=== PATIENT | female | born 1970 | race Caucasian/White ===

== ENCOUNTER → 2016-11-02 | Outpatient (CLI) | payer OTHER ==
--- NOTE | 2016-11-02 21:34 | CONS ---
PRIMARY CARE PHYSICIAN: Dr. Savage. REFERRING PHYSICIAN: Dr. Major. REASON FOR CONSULTATION: Sleep apnea. A 46-year-old e-mailed coming in to be investigated for sleep apnea. She snores very loud and her sleep is fragmented and during the day she is quite somnolent and sleepy. She grinds her teeth in addition and she is complaining of excessive tiredness and sleepiness during the day. She goes to bed around 10:00 p.m., wakes up at 7:00 a.m. in the morning. Sometimes it takes her more than 30 minutes to fall asleep; however, during the night she wakes multiple occasions and then she has at times difficulty in going back to the sleep. For this reason she was referred for a sleep evaluation. PAST MEDICAL HISTORY: 1. Congenital heart disease with a previous cardiac surgery that was done back in 1998. 2. Hypertension. 3. Seizure disorder. 4. Hyperlipidemia. 5. Hypothyroidism. 6. Migraines. 7. Anxiety/depression. SURGICAL HISTORY: 1. Cardiac surgery/open heart surgery for congenital heart disease and repair of a hole inside the heart in 1998. 2. Tonsillectomy. 3. Foot surgery. 4. . Drug allergies are not known. Outpatient medication list includes: 1. Pravastatin 40 mg p.o. daily. 2. Lexapro 20 mg p.o. daily. 3. Propranolol 80 mg p.o. daily. 4. Triamterene/hydrochlorothiazide 37.5/25, 1 tablet a day. 5. Levothyroxine 50 mcg p.o. daily. 6. Xanax 0.5 on a p.r.n. basis. 7. [place] 7.5 p.r.n. and 8. Sumatriptan on a p.r.n. basis. SOCIAL HISTORY: The patient is a nonsmoker. No history alcoholism. No history of IV drugs. FAMILY HISTORY: Negative for any sleep breathing disorder. REVIEW OF SYSTEMS: Twelve-point review of systems was done and the positive findings were all mentioned above in the history of present illness. BP is 115/88, pulse 90, respirations 16, temperature 98.5. Saturation 98% on room air. Weight is 203. Height is 5 feet 6 inches. GENERAL APPEARANCE: Calm, comfortable. HEENT: Mallampati class IV. Significant crowding of posterior pharynx. There is no goiter or neck mass. LUNGS: Clear to auscultation. HEART: Sounds are regular rate and rhythm. Normal S1, S2. ABDOMEN: Soft, nontender, no organomegaly. EXTREMITIES: No edema. No cyanosis or clubbing. IMPRESSION: 1. Obstructive sleep apnea suspected, currently under investigation. The patient may have also a component of insomnia in addition. 2. Significant crowding of posterior pharynx with a Mallampati class IV. 3. Obesity with a body mass index of 32.7. 4. Congenital heart disease with previous cardiac surgery. 5. Hypertension. 6. Hyperlipidemia. 7. Hypothyroidism. 8. Migraine headache. 9. Generalized anxiety/depression. 10. History of seizure disorder. PLAN: Proceed with a screening polysomnogram and treat the patient accordingly. Will investigate for any significant sleep disturbance and treat accordingly.
== END | disposition home or self-care (01) ==
LOC: SLEEP 14:52
PROVIDERS: ATTEND Internal Medicine Critical Care Medicine
DX: G47.33 Obstructive sleep apnea (adult) (pediatric) (principal); E66.9 Obesity, unspecified; Z68.32 Body mass index [BMI] 32.0-32.9, adult; Q24.9 Congenital malformation of heart, unspecified; I10 Essential (primary) hypertension; E78.5 Hyperlipidemia, unspecified; E03.9 Hypothyroidism, unspecified; G43.909 Migraine, unspecified, not intractable, without status migrainosus; F41.1 Generalized anxiety disorder; F32.9 Major depressive disorder, single episode, unspecified; G40.909 Epilepsy, unspecified, not intractable, without status epilepticus; Z79.899 Other long term (current) drug therapy
CPT/HCPCS: 99203; 99211

== ENCOUNTER → 2016-11-12 | Outpatient (CLI) | payer OTHER ==
--- NOTE | 2016-11-12 14:14 | MM ---
Reason for exam: screening (asymptomatic). Last mammogram was performed 1 year ago. History: Patient is postmenopausal. Family history of premenopausal breast cancer in mother at age 40. Benign left mammotome panel of the left breast, March 04, 2008. Took hormonal contraceptives for 1 year beginning at age 10. Taking estrogen for 5 months beginning at age 45. Physical Findings: A clinical breast exam by your physician is recommended on an annual basis and results should be correlated with mammographic findings. MG Screening Mammo w CAD Bilateral CC and MLO view(s) were taken. Prior study comparison: October 30, 2015, bilateral MG screening mammo w CAD. October 04, 2014, bilateral MG screening mammo w CAD. The breast tissue is heterogeneously dense. This may lower the sensitivity of mammography. There is no discrete abnormality. No significant changes when compared with prior studies. ASSESSMENT: Negative, BI-RAD 1 RECOMMENDATION: Routine screening mammogram of both breasts in 1 year.
== END | disposition home or self-care (01) ==
LOC: RADMAMWWP 10:21
PROVIDERS: ATTEND Internal Medicine
DX: Z12.31 Encounter for screening mammogram for malignant neoplasm of breast (principal)

== ENCOUNTER → 2017-02-23 | Outpatient (CLI) | payer OTHER ==
--- NOTE | 2017-02-23 10:48 | MR ---
EXAMINATION TYPE: MR lumbar spine wo con DATE OF EXAM: 02/23/2017 COMPARISON: NONE HISTORY: Low back pain TECHNIQUE: T1 and T2 axial and sagittal images of the lumbar spine are submitted. FINDINGS: There is no abnormal signal seen within the visualized spinal cord or paraspinal soft tissu es. At L1-2 there is no disc herniation or canal stenosis. No degenerative disc disease. At L2-3 there is mild disc desiccation. Disc space maintained. Mild hypertrophic change of the facets . No disc herniation, canal stenosis, or foraminal encroachment. At L3-4 there is mild disc desiccation. No disc herniation or canal stenosis. Mild circumferential di sc bulging with very mild bilateral foraminal encroachment. At L4-5 there is broad-based central disc bulging with mild effacement of thecal sac but no canal mann nosis. Mild bilateral foraminal encroachment. Mild hypertrophy of the facets. At L5-S1 there is no foraminal encroachment or canal stenosis. No disc herniation. Incidental note ma de of Tarlov cyst S2 level. IMPRESSION: 1. Multilevel disc desiccation with no evidence of focal herniation. Mild disc bulging L3-L4 and L4- 5 with no canal stenosis.
== END | disposition home or self-care (01) ==
LOC: RADMRIMAIN 09:10
PROVIDERS: ATTEND Internal Medicine
DX: M51.26 Other intervertebral disc displacement, lumbar region (principal)
CPT/HCPCS: 72148

== ENCOUNTER → 2017-04-26 | Outpatient (CLI) | payer OTHER ==
--- NOTE | 2017-04-27 08:21 | PN ---
This is a 47-year-old female patient, diagnosed having severe obstructive sleep apnea with an AHI of 74.5. The patient's disease was worse in a supine body position. The patient was placed on the CPAP therapy at the pressure of 9 cm of water. The patient is coming in today for a compliancy check. Despite a successful titration, compliance data is suboptimal. The patient is not meeting the insurance guidelines to maintain her CPAP machine. I noted that the patient is compliant that she is using it every night; however, she is not achieving more than 4 hours. In fact, she achieved more than 4 hours only 2 out of the past 30 days. Average CPAP use around 2.4 hours with an AHI down to 14.6. No significant leaks around the mask. Upon further inquiry, the patient is using a Wren FX nasal pillow and sleeping in a sidewise body position has become uncomfortable knowing that the mask itself is irritating the side of the face and the cheek. This could be partly related affecting her overall compliance. For that reason, I educated the patient. I tried the different mask interfaces and I decided to proceed with an AirFit P10 nasal pillow rather than Wren FX. She has no other new complaints. She has comorbidity including coronary artery disease and previous cardiac surgery and hypertension, hyperlipidemia and hypothyroidism and it is crucial for her to continue with the CPAP treatment. She is gaining weight and she is up to 216 pounds. BP is 150/86, pulse rate is 63, respirations 14, [place] Score is 9, weight is 216, temperature is 97.2, saturation 97% on room air. GENERAL APPEARANCE: Calm, comfortable. HEENT: Shortened posterior pharynx, no goiter or neck masses. LUNGS: Diminished, otherwise clear. Heart sounds are regular rate and rhythm, normal S1, S2. EXTREMITIES: No edema, no cyanosis or clubbing. IMPRESSION: 1. Symptomatic obstructive sleep apnea, apnea-hypopnea index of 74.7 consistent with severe disease worse in a supine body position. The patient is on CPAP therapy with suboptimal use. 2. Severe nocturnal oxygen desaturation secondary to obstructive sleep apnea. 3. Chronic hypersomnia. 4. Obesity with interval weight gain, weight is up to 216. 5. Hypertension. 6. Hyperlipidemia. 7. Hypothyroidism. 8. Previous history of cardiac surgery. PLAN: 1. Change CPAP machine to auto CPAP with a pressure of 9 max, minimum of 4. 2. Provided patient with AirFit P10 nasal pillows. 3. Encourage weight loss. 4. Encourage sleeping in a sidewise body position. 5. Will do a short-term followup and see the patient back in the office in 2 months' time to make sure she is using it and reassess her compliance. EBONY
== END | disposition home or self-care (01) ==
LOC: SLEEP 16:31
PROVIDERS: ATTEND Internal Medicine Critical Care Medicine
DX: G47.33 Obstructive sleep apnea (adult) (pediatric) (principal); G47.10 Hypersomnia, unspecified; E66.9 Obesity, unspecified; I10 Essential (primary) hypertension; E78.5 Hyperlipidemia, unspecified; E03.9 Hypothyroidism, unspecified

== ENCOUNTER → 2017-04-26 | Outpatient (CLI) | payer OTHER ==
[2017-04-25 13:52] VITALS: BMI 30.4
[2017-04-26 12:43] VITALS: BP 163/98; PULSE 67; RESP 18; TEMP 98.2
--- NOTE | 2017-04-26 13:26 | P.HPIM ---
History of Present Illness H&P Date: 04/26/17 Chief Complaint: low back and bilateral leg pain This is a 47-year-old patient referred for chronic pain in low back with radiation to both legs. Patient underwent LESIs at our facility approximately 4 years ago and did very well with them. Patient has been taking medications from primary care physician including [place] medications with some relief. Patient denies adverse drug effects from medications. Patient also denies new- onset weakness, bowel/bladder incontinence, or any other signs or symptoms of cauda equina syndrome. There are no signs of acute intoxication, and no indications of medication diversion or overuse. Patient notes that pain worsens significantly with standing and walking, and improves with rest, ice, and medication. Patient has used several types of medications for pain, including NSAIDS, OPIOIDS, BENZODIAZEPINES. Patient HAS NOT had surgery. Patient HAS had injections previously. Patient /HAS NOT had physical therapy recently. In addition to above, 13-point review of systems is also negative for chest pain , shortness of breath, changes in vision, changes in hearing, new onset weakness , abdominal pain, diarrhea, extreme fatigue, malaise, fever, skin changes, homicidal or suicidal ideation, or bowel or bladder incontinence. Vital Signs: Reviewed in EMR Gen: WDWN, AAOx3, NAD HEENT: NCAT, EOMI, hearing grossly normal Pulm: resp unlabored Abd: soft, NT, ND Neck: supple, trachea midline ROM in flexion lumbar spine: reduced ROM in extension lumbar spine: reduced Lumbar paravertebral tenderness: + Facet loading: + bilateral, L > R SI joint tenderness: neg Francis's test: neg Straight leg raise: + LLE at 10 degrees Lower extremity: decreased strength in dorsi/plantarflexion bilateral Neuro: CN II-XII grossly intact, decreased sensation bilateral lower extremities Past Medical History Past Medical History: Hyperlipidemia, Hypertension, Sleep Apnea/CPAP/BIPAP, Thyroid Disorder Additional Past Medical History / Comment(s): chronic back pain, numbness tingling deyanira extremeties, had seizure at age 28 prior to open heart sx, hx migraines History of Any Multi-Drug Resistant Organisms: None Reported Past Surgical History: Adenoidectomy, Section, Orthopedic Surgery, Tonsillectomy Additional Past Surgical History / Comment(s): open heart sx to repair congenital heart defect at age 28, rt foot ORIF. Past Anesthesia/Blood Transfusion Reactions: No Reported Reaction Past Psychological History: Anxiety Smoking Status: Never smoker Past Alcohol Use History: Rare Past Drug Use History: None Reported - Past Family History Mother Family Medical History: Cancer Medications and Allergies Home Medications Medication Instructions Recorded Confirmed Type ALPRAZolam [Xanax] 0.5 mg PO TID PRN 04/25/17 04/26/17 History Escitalopram [Lexapro] 20 mg PO HS 04/25/17 04/26/17 History HYDROcodone/APAP 7.5-325MG [[place] 1 tab PO Q6H PRN 04/25/17 04/26/17 History 7.5-325] Levothyroxine Sodium [Synthroid] 50 mcg PO DAILY 04/25/17 04/26/17 History Norethindrone Estradiol 1 tab PO DAILY 04/25/17 04/26/17 History Pravastatin Sodium [Pravachol] 40 mg PO HS 04/25/17 04/26/17 History Propranolol HCl [Inderal Xl] 80 mg PO DAILY 04/25/17 04/26/17 History SUMAtriptan SUCCINATE [Imitrex] 50 mg PO DAILY PRN 04/25/17 04/26/17 History Triamterene-Hctz 37.5-25Mg 1 tab PO DAILY 04/25/17 04/26/17 History [Dyazide 37.5-25 Capsule] Allergies Allergy/AdvReac Type Severity Reaction Status Date / Time No Known Allergies Allergy Verified 04/26/17 12:35 Physical Exam Vitals: Vital Signs Temp Pulse Resp BP Pulse Ox 04/26/17 12:36 98.2 F 67 18 163/98 98 Results Comments: MRI lumbar spine dated 02/23/2017 demonstrates mild disc desiccation at the L2- L3 and L3-L4 levels. There is also mild hypertrophic changes of the facets at both these levels. At the L4-L5 level there is a broad-based central disc bulging with mild effacement of thecal sac but no canal stenosis there is mild bilateral foraminal encroachment and facet hypertrophy at this level. The L5- S1 level is unremarkable. Assessment and Plan Plan: 1. Explanation: Opioid and psychological risk scores were reviewed. Diagnoses , prognoses, and multiple treatment options including but not limited to physical therapy, interventional therapies, adjuvant medical therapies, narcotic medication therapies, and surgery were discussed with the patient and all questions were answered to the patient's satisfaction. 2. Opioid agreement: no opioids prescribed today 3. Counseling: The patient was counseled extensively on BODY MASS INDEX, EXERCISE. Specifically, the patient was instructed regarding the importance of weight control, and exercise in the context of both chronic pain and overall health. 4. Procedures: LESI series 5. Consultations: none 6. Investigations: none 7. Medications: none 8. Disposition: f/u for procedure as scheduled PQRS measures: 1-Patient's medications are documented in the chart. 2-Tobacco use is negative 3-Patient has not had a pneumococcal vaccine. 4-Advanced care planning discussed, patient unable to give. 5-Opioid contract NOT signed with the patient. 6-Pain positive, follow-up visit or procedure scheduled 7-Patient's blood pressure measured and documented, and patient will follow up with the primary care due to hypertension. 8-Patient's weight was measured, and body mass index ABOVE the normal limits, and counseling was done. Patient instructed to follow up with PCP. 9-Patient WAS NOT identified as an unhealthy alcohol user. Time with Patient: Greater than 30
== END | disposition home or self-care (01) ==
LOC: PNWHC3 12:29
PROVIDERS: ATTEND Anesthesiology
DX: M54.5 Low back pain (principal); M79.605 Pain in left leg; M79.604 Pain in right leg; E78.5 Hyperlipidemia, unspecified; F41.9 Anxiety disorder, unspecified; G47.30 Sleep apnea, unspecified
CPT/HCPCS: 99211

== ENCOUNTER 2017-04-27 09:24 | Day surgery (SDC) | payer OTHER ==
[2017-04-27 10:50] VITALS: RESP 16; TEMP 97.3
[2017-04-27] MEDS ORDERED: LIDOCAINE 1% 20 ML VIAL (10MG/ML) FOR IV START INTRADERMA ONE (10:55)
[2017-04-27] MEDS ORDERED: LACTATED RINGERS 1,000 ML IV ONE (10:55)
--- NOTE | 2017-04-27 11:14 | P.PCN ---
Date of Procedure: 04/27/17 Preoperative Diagnosis: Postoperative Diagnosis: Procedure(s) Performed: Implants: Surgeon: Bandar Lerner Pathology: none sent Condition: stable Disposition: PACU Indications for Procedure: Operative Findings: Description of Procedure: PREOPERATIVE DIAGNOSIS: 1-Lumbar radiculitis. POSTOPERATIVE DIAGNOSIS: 1-Lumbar radiculitis. PROCEDURE 1. Lumbar epidural steroid injection under fluoroscopic guidance at the L4-L5 level. 2. Lumbar epidurogram. ANESTHESIA: Local with 1% lidocaine; IV sedation with Versed/fentanyl. EBL: Minimal PROCEDURE INDICATION: The patient with low back pain and radiculitis symptoms unresponsive to conservative treatment. Fluoroscopy was used to optimize visualization of the needle placement and to maximize safety. No use of blood thinners. PROCEDURE DESCRIPTION / TECHNIQUE: The patient was seen and identified in the preoperative area. Risks, benefits, complications, and alternatives were discussed with the patient, including but not limited to bleeding, infection, nerve damage, allergic reactions to medications, and incomplete pain relief. The patient agreed to proceed with the procedure and signed the consent after all questions were answered. IV was started, and vital signs were stable. Patient was taken to the OR and time out was completed to confirm patient position, procedure, laterality of pain, and allergies. The patient was placed in the prone position on procedure table and a pillow was placed under the abdomen to reduce lumbar lordosis. The lumbosacral area was prepped and draped in the usual sterile fashion. Critical pause was taken. Vital signs were closely monitored during the procedure. Conscious sedation was used during the procedure to decrease patients anxiety. Using anterior-posterior fluoroscopy, the L4-L5 interlaminar space was identified and the skin over this site was marked and then infiltrated with 1% lidocaine subcutaneously. Subsequently, a 20-gauge 3.5-inch Tuohy epidural needle was inserted and advanced toward the epidural space using the Loss of resistance technique and guided by AP and lateral fluoroscopy. The correct needle position in the epidural space was verified with the injection of 2 mL of the water soluble contrast dye Omnipaque 300 contrast and observing an excellent epidurogram with the epidural spread of the dye, after negative aspiration for blood and CSF and in the absence of paresthesias. Again after negative aspiration, a 8 ml mixture containing 20 mg of PF Decadron and 4 ml of preservative free Normal Saline, and 2 ml of preservative free lidocaine 1% solution was injected and a washout of epidurogram was seen. Needle was withdrawn intact, skin was cleansed, and bandages were applied. COMPLICATIONS: None COMMENTS: DISPOSITION / PLANS: The patient was placed in a supine position and transferred to the recovery area in a stable condition for observation. There was no evidence of lower extremity motor or sensory deficit after the procedure. Patient was discharged from the recovery room after meeting discharge criteria. Home discharge instructions were given to the patient by the staff. The patient was reexamined prior to discharge and there were no issues. The patient will schedule a repeat procedure in 4-6 weeks.
[2017-04-27] MEDS ORDERED: IV FLUID CONTINUATION 1,000 ML IV ONE (11:22)
[2017-04-27 11:51] VITALS: BP 135/82; PULSE 61
--- NOTE | 2017-04-27 14:10 | FL ---
EXAMINATION TYPE: FL guided pain mgmt statistic DATE OF EXAM: 04/27/2017 HISTORY: Pain lumbar epidural steroid injection, 11 secs fluoro, [address] Evans in OR
== END 2017-04-27 12:04 | disposition home or self-care (01) ==
LOC: ORPAIN 09:24
PROVIDERS: ATTEND Anesthesiology
DX: G89.29 Other chronic pain (principal); M54.16 Radiculopathy, lumbar region; E78.5 Hyperlipidemia, unspecified; I10 Essential (primary) hypertension; E07.9 Disorder of thyroid, unspecified; G47.30 Sleep apnea, unspecified; Z99.89 Dependence on other enabling machines and devices; F41.9 Anxiety disorder, unspecified
CPT/HCPCS: 81025; 62323; J2250; J1100; Q9965; J3010; 99152

== ENCOUNTER 2017-05-23 07:14 | Day surgery (SDC) | payer OTHER ==
[2017-05-13 16:29] VITALS: BMI 33.1
[2017-05-23] MEDS ORDERED: LACTATED RINGERS 1,000 ML IV SCH (07:55)
[2017-05-23 07:59] VITALS: RESP 16; TEMP 97.8
[2017-05-23] MEDS ORDERED: LIDOCAINE 1% 20 ML VIAL (10MG/ML) FOR IV START INTRADERMA ONE (08:01)
[2017-05-23] MEDS ORDERED: IV FLUID CONTINUATION 1,000 ML IV ONE (08:37)
--- NOTE | 2017-05-23 08:49 | P.PCN ---
Date of Procedure: 05/23/17 Preoperative Diagnosis: Postoperative Diagnosis: Procedure(s) Performed: Implants: Surgeon: Bandar Lerner Pathology: none sent Condition: stable Disposition: PACU Indications for Procedure: Operative Findings: Description of Procedure: PREOPERATIVE DIAGNOSIS: 1-Lumbar radiculitis. POSTOPERATIVE DIAGNOSIS: 1-Lumbar radiculitis. PROCEDURE 1. Lumbar epidural steroid injection under fluoroscopic guidance at the L4-L5 level. 2. Lumbar epidurogram. ANESTHESIA: Local with 1% lidocaine; IV sedation with Versed/fentanyl. EBL: Minimal PROCEDURE INDICATION: The patient with low back pain and radiculitis symptoms unresponsive to conservative treatment. Fluoroscopy was used to optimize visualization of the needle placement and to maximize safety. No use of blood thinners. Good relief from LESI #1 (>50% relief of pain) for 2-3 weeks. PROCEDURE DESCRIPTION / TECHNIQUE: The patient was seen and identified in the preoperative area. Risks, benefits, complications, and alternatives were discussed with the patient, including but not limited to bleeding, infection, nerve damage, allergic reactions to medications, and incomplete pain relief. The patient agreed to proceed with the procedure and signed the consent after all questions were answered. IV was started, and vital signs were stable. Patient was taken to the OR and time out was completed to confirm patient position, procedure, laterality of pain, and allergies. The patient was placed in the prone position on procedure table and a pillow was placed under the abdomen to reduce lumbar lordosis. The lumbosacral area was prepped and draped in the usual sterile fashion. Critical pause was taken. Vital signs were closely monitored during the procedure. Conscious sedation was used during the procedure to decrease patients anxiety. Using anterior-posterior fluoroscopy, the L4-L5 interlaminar space was identified and the skin over this site was marked and then infiltrated with 1% lidocaine subcutaneously in a right paramedian fashion. Subsequently, a 20- gauge 3.5-inch Tuohy epidural needle was inserted and advanced toward the epidural space using the Loss of resistance technique and guided by AP and lateral fluoroscopy. The correct needle position in the epidural space was verified with the injection of 2 mL of the water soluble contrast dye Omnipaque 300 contrast and observing an excellent epidurogram with the epidural spread of the dye, after negative aspiration for blood and CSF and in the absence of paresthesias. Again after negative aspiration, a 8 ml mixture containing 20 mg of PF Decadron and 4 ml of preservative free Normal Saline, and 2 ml of preservative free lidocaine 1% solution was injected and a washout of epidurogram was seen. Needle was withdrawn intact, skin was cleansed, and bandages were applied. COMPLICATIONS: None COMMENTS: DISPOSITION / PLANS: The patient was placed in a supine position and transferred to the recovery area in a stable condition for observation. There was no evidence of lower extremity motor or sensory deficit after the procedure. Patient was discharged from the recovery room after meeting discharge criteria. Home discharge instructions were given to the patient by the staff. The patient was reexamined prior to discharge and there were no issues. The patient will schedule a third LESI procedure in 4-6 weeks.
--- NOTE | 2017-05-23 08:59 | FL ---
Fluoroscopy HISTORY: Pain 9 seconds fluoroscopy time supplied to the referring clinician. 3 intraoperative C-arm images docume nt the procedure. See dictated report from anesthesia.
[2017-05-23 09:02] VITALS: BP 109/74; PULSE 62
== END 2017-05-23 09:19 | disposition home or self-care (01) ==
LOC: ORPAIN 07:14
PROVIDERS: ATTEND Anesthesiology
DX: M54.16 Radiculopathy, lumbar region (principal); G89.29 Other chronic pain; E07.9 Disorder of thyroid, unspecified; F41.9 Anxiety disorder, unspecified; E78.5 Hyperlipidemia, unspecified; G43.909 Migraine, unspecified, not intractable, without status migrainosus; I10 Essential (primary) hypertension; G47.30 Sleep apnea, unspecified; Z99.89 Dependence on other enabling machines and devices; Z79.1 Long term (current) use of non-steroidal anti-inflammatories (NSAID); Z79.891 Long term (current) use of opiate analgesic; Z79.899 Other long term (current) drug therapy
CPT/HCPCS: 62323; J2250; J1100; Q9965; J3010; 99152

== ENCOUNTER 2017-06-14 09:55 | Day surgery (SDC) | payer OTHER ==
[2017-06-09 14:52] VITALS: BMI 30.4
[~2017-06-14 09:55] MED LIST: LACTATED RINGERS 1,000 ML IV ONE
[2017-06-14 10:29] VITALS: TEMP 98.2
[2017-06-14] MEDS ORDERED: LIDOCAINE 1% 20 ML VIAL (10MG/ML) FOR IV START INTRADERMA ONE (10:37)
--- NOTE | 2017-06-14 11:22 | P.PCN ---
Date of Procedure: 06/14/17 Procedure(s) Performed: PREOPERATIVE DIAGNOSIS: 1- Lumbar Degenerative Disc Diseases 2-Lumbar spondylosis with Facet arthropathy without myelopathy 3-lumbar radiculopathy POSTOPERATIVE DIAGNOSIS: 1-Lumber Degenerative Disc Diseases 2-Lumbar spondylosis with Facet arthropathy without myelopathy. 3-lumbar radiculopathy PROCEDURE 1. Lumbar epidural steroid injection under fluoroscopic guidance at the L4-5 level. 2. Lumbar epidurogram. ANESTHESIA: Local with 1% lidocaine 3 ml and IV sedation with Versed 2 mg , and fentanyle 100 Mcg EBL: Minimal PROCEDURE INDICATION: The patient with low back pain and radiculitis symptoms unresponsive to conservative treatment. Fluoroscopy was used to optimize visualization of the needle placement and to maximize safety. PROCEDURE DESCRIPTION / TECHNIQUE: The patient was seen and identified in the preoperative area. Risks, benefits , complications including but not limited to infections ,bleeding ,allergic reaction to the medications ,nerve damage and not complete pain releife , and alternatives were discussed with the patient. The patient agreed to proceed with the procedure and signed the consent. IV was started, and vital signs were stable. Patient was taken to the OR and time out was completed. The patient was placed in the prone position on procedure table and a pillow was placed under the abdomen to reduce lumbar lordosis. The lumbosacral area was prepped and draped in the usual sterile fashion.ere closely monitored during the procedure. Conscious sedation was used during the procedure to decrease patients anxiety. Vital signs was monitered during the entire procedure. Using anterior-posterior fluoroscopy, the L4-5 interlaminar space was identified and the skin over this site was marked and then infiltrated with 1% lidocaine subcutaneously. Subsequently, a 20-gauge Tuohy epidural needle was inserted and advanced toward the epidural space using the ``Loss of resistance technique and guided by AP and lateral fluoroscopy. The correct needle position in the epidural space was verified with the injection of 2 mL of the water soluble contrast dye Omnipaque 180 contrast and observing an excellent epidurogram with the epidural spread of the dye, after negative aspiration for blood and CSF and in the absence of paresthesias. Again after negative aspiration, a 6 ml mixture containing 20 mg of Dexamethasone and 2 ml of preservative free Normal Saline, and 2 ml of preservative free lidocaine 1% solution was injected and a washout of epidurogram was seen. Needle was withdrawn intact, skin was cleansed, and bandages were applied. COMPLICATIONS: None DISPOSITION / PLANS: The patient was placed in a supine position and transferred to the recovery area in a stable condition for observation. There was no evidence of lower extremity motor or sensory deficit after the procedure. Patient was discharged from the recovery room after meeting discharge criteria. Home discharge instructions were given to the patient by the staff. The patient was reexamined prior to discharge. The patient will schedule a follow up in the clinic in 2-4 weeks.
[2017-06-14] MEDS ORDERED: IV FLUID CONTINUATION 1,000 ML IV ONE (11:28)
--- NOTE | 2017-06-14 11:40 | FL ---
EXAMINATION TYPE: FL guided pain mgmt statistic DATE OF EXAM: 06/14/2017 CLINICAL HISTORY: Low back pain. TECHNIQUE: Fluoroscopy. COMPARISON: None. FINDINGS: Fluoroscopic guidance was provided during pain relief procedure performed by Dr. Magana . A total of 3 seconds of fluoroscopic time was utilized during the procedure and one spot intraoper ative image is acquired. Single image acquired shows needle localization at level of superior L5 end plate. IMPRESSION: As Above.
[2017-06-14 11:55] VITALS: BP 129/77; PULSE 56; RESP 20
== END 2017-06-14 11:56 | disposition home or self-care (01) ==
LOC: ORPAIN 09:55
PROVIDERS: ATTEND Specialist
DX: M51.16 Intervertebral disc disorders with radiculopathy, lumbar region (principal); M47.26 Other spondylosis with radiculopathy, lumbar region; M46.96 Unspecified inflammatory spondylopathy, lumbar region
CPT/HCPCS: 99152; 62323; J2250; J1100; Q9965; J3010

== ENCOUNTER → 2017-07-27 | Outpatient (CLI) | payer OTHER ==
[2017-07-27 13:11] VITALS: BP 167/106; PULSE 70; RESP 16
--- NOTE | 2017-07-27 13:37 | P.PN ---
Subjective Progress Note Date: 07/27/17 This is a follow-up visit for this 47 years old female with a history of severe low back pain with radiation to the lower extremity she is diagnosed with lumbar radiculopathy/lumbar degenerative disc disease/lumbar spondylosis, we have done lumbar epidural steroid injections 3 and she reported that her pain completely gone after the injection, her pain level in the low back area is 0/ 10 , and she continued to use [place] for chest wall pain which is prescribed by her primary care she denies any side effects of the medication she denies any excessive drowsiness or sleepiness Objective - Vital Signs Vital signs: Vital Signs Temp Pulse 70 07/27/17 13:00 Resp 16 07/27/17 13:00 BP 167/106 07/27/17 13:00 Pulse Ox 95 07/27/17 13:00 Intake & Output 07/26/17 07/27/17 07/27/17 18:59 06:59 18:59 Weight 90.718 kg - Exam Physical Examinations : 1-Constitutiona : Cooperative , not in acute distress . 2-HEENT : nech ; supple , no Lymphadenopathy , normal thyroid size . eyes : no ptosis , no icterus, no photophobia . 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 Pain improved after lumbar epidural steroid injections , patient will follow up with the pain clinic when necessary basis Time with Patient: Less than 30
== END ==
LOC: PNWHC3 12:53
PROVIDERS: ATTEND Specialist
DX: M51.16 Intervertebral disc disorders with radiculopathy, lumbar region (principal); M47.26 Other spondylosis with radiculopathy, lumbar region
CPT/HCPCS: 99211

== ENCOUNTER → 2017-11-15 | Outpatient (CLI) | payer OTHER ==
--- NOTE | 2017-11-17 07:59 | MM ---
Reason for exam: screening (asymptomatic). Last mammogram was performed 1 year ago. History: Patient is postmenopausal. Family history of premenopausal breast cancer in mother at age 40. Benign left mammotome panel of the left breast, March 04, 2008. Took hormonal contraceptives for 1 year beginning at age 10. Taking estrogen for 5 months beginning at age 45. Physical Findings: A clinical breast exam by your physician is recommended on an annual basis and results should be correlated with mammographic findings. MG Screening Mammo w CAD Bilateral CC and MLO view(s) were taken. Prior study comparison: November 12, 2016, bilateral MG screening mammo w CAD. October 30, 2015, bilateral MG screening mammo w CAD. The breast tissue is heterogeneously dense. This may lower the sensitivity of mammography. There is chronic nodularity bilaterally. No significant changes when compared with prior studies. ASSESSMENT: Negative, BI-RAD 1 RECOMMENDATION: Routine screening mammogram of both breasts in 1 year.
== END | disposition home or self-care (01) ==
LOC: RADMAMWWP 09:57
PROVIDERS: ATTEND Obstetrics & Gynecology
DX: Z12.31 Encounter for screening mammogram for malignant neoplasm of breast (principal)
CPT/HCPCS: 77067

== ENCOUNTER → 2018-02-28 | Outpatient (CLI) | payer OTHER ==
--- NOTE | 2018-02-28 18:47 | PN ---
PROGRESS NOTE The patient is 48, coming in for annual CPAP check. She has obstructive sleep apnea, severe at baseline, with an apnea-hypopnea index of 74 and currently she is on APAP with a maximum pressure of 12 and a minimum pressure of 4. On today's evaluation, the patient is still very compliant and she is benefitting from the treatment. She wants her supplies to be feels refilled and renewed. I checked her CPAP machine. She is on a minimum pressure of 4 and a maximum pressure of 20. Her compliancy for CPAP is 100% for more than 4 hours, averaging around 6.9 hours of CPAP use per night. Leak factor is only 22 beats per minute and her AHI is down to 5.2. Her average pressure is at 11 cm of water based on the CPAP read. Weight has been stable. No other new onset medical problems or comorbidities. REVIEW OF SYSTEMS: A 12-point review of systema was done. Positive findings are mentioned above in the history of present illness. No chest pain. No shortness of breath. No headaches. No altered mentation. No excessive sleepiness. No falling asleep while driving or operating machinery. BP is 122/84, pulse 68, respirations 16, temperature 97.9, saturation 99% on room air. Weight is 222, height is 5 feet 6 inches, BMI 35.8. GENERAL APPEARANCE: Calm, comfortable. HEAD: Atraumatic, normocephalic. NECK: Supple. There is no JVD. No goiter or neck mass. Crowding of posterior pharynx is present. LUNGS: Clear to auscultation. HEART: Sounds regular rate and rhythm. Normal S1, S2. No S3, S4. No murmurs. ABDOMEN: Soft, nontender. No organomegaly. EXTREMITIES: No cyanosis or clubbing. NEUROLOGIC: Alert and oriented x3. No focal neurological deficits. PSYCHIATRIC: Negative for anxiety or depression. IMPRESSION: 1. Severe obstructive sleep apnea, apnea-hypopnea index of 74.5, continues to undergo seen successful APAP treatment. 2. Chronic hypersomnia improved with APAP treatment. 3. Obesity with a stable weight, BMI 35.8. 4. Congenital heart disease with previous cardiac surgery. 5. Hypertension. 6. Hyperlipidemia. 7. Hypothyroidism. 8. Migraines. 9. Generalized anxiety disorder. 10.History of seizure disorder. PLAN: 1. Will change the APAP to a maximum pressure of 14 and keep the minimum pressure at 4. This will allow the patient to utilize higher pressure if needed, knowing that her apnea-hypopnea index while on treatment is at 5.2. 2. Renew the [place]ren FX small size nasal pillows. 3. Encourage weight loss. 4. Treatment is successful. She will see me back in a year's time, earlier if needed. DORIS / RAYMUNDO: [id number] /
== END | disposition home or self-care (01) ==
LOC: SLEEP 17:18
PROVIDERS: ATTEND Internal Medicine Critical Care Medicine
DX: G47.33 Obstructive sleep apnea (adult) (pediatric) (principal); E66.9 Obesity, unspecified; Q24.9 Congenital malformation of heart, unspecified; I10 Essential (primary) hypertension; E78.5 Hyperlipidemia, unspecified; E03.9 Hypothyroidism, unspecified; G43.909 Migraine, unspecified, not intractable, without status migrainosus; F41.1 Generalized anxiety disorder; Z98.890 Other specified postprocedural states; Z68.35 Body mass index [BMI] 35.0-35.9, adult; Z99.89 Dependence on other enabling machines and devices; Z86.69 Personal history of other diseases of the nervous system and sense organs

== ENCOUNTER → 2018-08-25 | Outpatient (CLI) | payer OTHER ==
--- NOTE | 2018-08-25 13:27 | XR ---
EXAMINATION TYPE: XR chest 2V DATE OF EXAM: 08/25/2018 COMPARISON: NONE HISTORY: Cough TECHNIQUE: Frontal and lateral views of the chest are obtained. FINDINGS: Patient is post median sternotomy. There is no focal air space opacity, pleural effusion, or pneumothorax seen. The cardiac silhouette size is within normal limits. The osseous structures are intact. IMPRESSION: No acute cardiopulmonary process.
== END | disposition home or self-care (01) ==
LOC: RADXRMAIN 11:58
PROVIDERS: ATTEND Internal Medicine
DX: R05 Cough (principal); R06.02 Shortness of breath
CPT/HCPCS: 71046

== ENCOUNTER → 2018-11-13 | Outpatient (CLI) | payer OTHER ==
--- NOTE | 2018-11-13 11:53 | MR ---
EXAMINATION TYPE: MR brain wo con DATE OF EXAM: 11/13/2018 COMPARISON: MRI brain January 25, 2013. HISTORY: Seizures TECHNIQUE: Multiplanar, multisequence imaging of the brain and brainstem is performed without IV cont rast. Seizure protocol. FINDINGS: Diffusion weighted images demonstrate no evidence of a recent infarct or other diffusion abnormality. There is no worrisome extra-axial fluid collection. There is ventricular and sulcal prominence consis tent with mild diffuse cerebral atrophy most prominent superiorly over the bilateral frontal lobes. T here are scattered foci of T2 hyperintensity seen throughout the white matter bilaterally. Lesions ar e nonspecific in appearance and distribution but most likely on basis of product of chronic small ves alice ischemic change in patient of this age. Overall no significant change from prior MRI. Axial T2 St ar weighted images show no suspicious intraparenchymal blood product. T2 coronal weighted images show hippocampal gyri to appear symmetric and felt within normal limits. Midline structures demonstrate normal morphology. The craniocervical junction appears within normal limits. Normal vascular flow voids are present. There is mild mucosal thickening involving inferior a spect of both maxillary sinuses with more focal posterior mucosal thickening or mucous retention cyst /polyp seen in the right maxillary sinus axial image 4 unchanged from prior. Remainder paranasal sinu ses are clear. Nasal septum remains slightly deviated to right of midline. The globes are intact bila terally. Slightly elongated appearance is redemonstrated and stable. IMPRESSION: Mild diffuse cerebral atrophy most prominent over bilateral frontal lobes and mild to mod erate nonspecific white matter changes most likely on basis of product of chronic small vessel ischem ic change redemonstrated. No significant interval change from prior MRI.
== END | disposition home or self-care (01) ==
LOC: RADMRIMAIN 10:57
PROVIDERS: ATTEND Psychiatry & Neurology Neurology
DX: G31.9 Degenerative disease of nervous system, unspecified (principal); R90.89 Other abnormal findings on diagnostic imaging of central nervous system; G40.309 Generalized idiopathic epilepsy and epileptic syndromes, not intractable, without status epilepticus
CPT/HCPCS: 70551

== ENCOUNTER → 2019-01-04 | Outpatient (CLI) | payer OTHER ==
--- NOTE | 2019-01-05 13:28 | MM ---
Reason for exam: screening (asymptomatic). Last mammogram was performed 1 year and 2 months ago. History: Patient is postmenopausal. Family history of premenopausal breast cancer in mother at age 40. Benign left mammotome panel of the left breast, March 04, 2008. Took hormonal contraceptives for 1 year beginning at age 10. Taking estrogen for 5 months beginning at age 45. Physical Findings: A clinical breast exam by your physician is recommended on an annual basis and results should be correlated with mammographic findings. MG Screening Mammo w CAD Bilateral CC and MLO view(s) were taken. Prior study comparison: November 15, 2017, bilateral MG screening mammo w CAD. November 12, 2016, bilateral MG screening mammo w CAD. The breast tissue is heterogeneously dense. This may lower the sensitivity of mammography. Stable benign calcifications. There is no discrete abnormality. No significant changes when compared with prior studies. ASSESSMENT: Benign, BI-RAD 2 RECOMMENDATION: Routine screening mammogram of both breasts in 1 year.
== END | disposition home or self-care (01) ==
LOC: RADMAMWWP 07:52
PROVIDERS: ATTEND Obstetrics & Gynecology
DX: Z12.31 Encounter for screening mammogram for malignant neoplasm of breast (principal); Z80.3 Family history of malignant neoplasm of breast
CPT/HCPCS: 77067

== ENCOUNTER 2019-01-16 10:48 | Day surgery (SDC) | payer OTHER ==
[2019-01-12 10:49] VITALS: BMI 30.4
[~2019-01-16 10:48] MED LIST changes: -LACTATED RINGERS 1,000 ML IV ONE; +LACTATED RINGERS 1,000 ML IV SCH; +LIDOCAINE 1% 20 ML VIAL (10MG/ML) FOR IV START INTRADERMA PRN; +ONDANSETRON 4 MG/2 ML VIAL IVP PRN
[2019-01-16 11:00] VITALS: RESP 18; TEMP 98.3
[2019-01-16] MEDS ORDERED: LACTATED RINGERS 1,000 ML IV ONE (11:01)
[2019-01-16] MEDS ORDERED: LIDOCAINE 1% 20 ML VIAL (10MG/ML) FOR IV START INTRADERMA ONE (11:02)
[2019-01-16] MEDS ORDERED: PROPOFOL 10 MG/ML 20 ML VIAL IV ONE (11:30)
[2019-01-16] MEDS ORDERED: LIDOCAINE 1% INJ 10MG/ML (20 ML MDV) ONE (11:30)
--- NOTE | 2019-01-16 11:53 | P.PCN ---
Date of Procedure: 01/16/19 Procedure(s) Performed: Procedure: Total colonoscopy. Preoperative diagnosis: Screening for neoplasia. Postoperative diagnosis: Exam within normal limits. Preparation: HalfLytely prep. Sedation: Was provided by anesthesia. Brief clinical history: The patient is a 48-year-old female who is scheduled for this evaluation for screening for neoplasia age being her risk factor. There is no family history of colon cancer. The patient has no abdominal complaints, bleeding or anemia. This would be her first colonoscopy. Procedure: With the patient on her left lateral decubitus position and after informed consent and adequate sedation, the perianal area was inspected and it did not show any fissures or fistulas. There were no masses felt on digital rectal examination. The Olympus CFH 190L video colonoscope was then inserted in the rectum in the usual fashion and advanced to the cecum. The mucosa appeared healthy. No polyps or tumors were seen or any obvious diverticular disease or other pathology. I retroflexed the endoscope in the rectum before the endoscope was withdrawn. The patient tolerated the procedure well. Plan: The patient was reassured. She will follow-up with you as planned and I recommended repeat exam in 10 years.
[2019-01-16 12:07] VITALS: BP 133/65; PULSE 50
== END 2019-01-16 12:22 | disposition home or self-care (01) ==
LOC: ORWHC2ENDO 10:48
DX: Z12.11 Encounter for screening for malignant neoplasm of colon (principal); I48.91 Unspecified atrial fibrillation; M79.7 Fibromyalgia; I10 Essential (primary) hypertension; E78.5 Hyperlipidemia, unspecified; M19.90 Unspecified osteoarthritis, unspecified site; G47.33 Obstructive sleep apnea (adult) (pediatric); G40.909 Epilepsy, unspecified, not intractable, without status epilepticus; Z99.89 Dependence on other enabling machines and devices; Z79.890 Hormone replacement therapy; Z79.891 Long term (current) use of opiate analgesic; Z79.899 Other long term (current) drug therapy; E07.9 Disorder of thyroid, unspecified
CPT/HCPCS: J2001; J2704; G0121

== ENCOUNTER → 2021-01-21 | Outpatient (CLI) | payer OTHER ==
--- NOTE | 2021-01-21 10:29 | BD ---
EXAMINATION TYPE: Axial Bone Density DATE OF EXAM: 01/21/2021 COMPARISON: NONE CLINICAL HISTORY: Height: 5 FT 6 IN Weight: 214 FRAX RISK QUESTIONS: Alcohol (3 or more units per day): NO Family History (Parent hip fracture): NO Glucocorticoids (More than 3mos): NO (Ex: prednisone, prednisolone, methylprednisolone, dexamethasone, and hydrocortisone). History of Fracture in Adulthood: YES Secondary Osteoporosis: 1. Type 1 Diabetes: NO 2. Hyperthyroidism: NO 3. Menopause before 45: NO 4. Malnutrition: NO 5. Chronic liver disease: NO Rheumatoid Arthritis: NO Current Tobacco Use: NO RISK FACTORS HISTORY OF: Surgery to Spine/Hip(right/left)/Wrist (right/left): NO Family History of Osteoporosis: NO Active: YES Diet low in dairy products/other sources of calcium: NO Postmenopausal woman: AGE 45 Take estrogen and/or progesterone medications: TOOK HRT FOR APPROX 4 YEARS NOT NOW Lost more than 2 inches in height since high school: YES MEDICATIONS: Thyroid Medications: YES Which medication: LEVOTHYROXINE How Long: APPROX 4 YEARS Additional Medications: PROPANOLOL,LEVOTHYROXINE, TRIAMTERENE, PANTOPRAZOLE, LEVETIRACETAM, FERROUS S ULFATE, FENOFIBRATE, LEXAPRO, PREVA STATIN, SUMATRIPTAN, XANAX, NORCO Additional History: EXAM MEASUREMENTS: Bone mineral densitometry was performed using the Nitero System. Bone mineral density as measured about the Lumbar spine is: ----- L1-L4(G/cm2): 1.198 T Score Values are as follows: ----- L2: 0.1 ----- L3: 0.4 ----- L4: 0.5 ----- L1-L4: 0.1 BASELINE Bone mineral density about the R hip (g/cm2): 1.083 Bone mineral density about the L hip (g/cm2): 1.147 T Score values are as follows: -----R Neck: 0.3 -----L Neck: 0.8 -----R Total: 1.2 -----L Total: 1.6 BASELINE IMPRESSION: No evidence for osteoporosis or osteopenia. NOTE: T-SCORE=SD OF THE YOUNG ADULT MEAN.
--- NOTE | 2021-01-22 10:06 | MM ---
Reason for exam: screening (asymptomatic). Last mammogram was performed 2 years and 1 month ago. History: Patient is postmenopausal. Family history of premenopausal breast cancer in mother at age 40. Benign left mammotome panel of the left breast, March 04, 2008. Took hormonal contraceptives for 1 year beginning at age 10. Took estrogen for 5 months beginning at age 45. Physical Findings: A clinical breast exam by your physician is recommended on an annual basis and results should be correlated with mammographic findings. MG Screening Mammo w CAD Bilateral CC and MLO view(s) were taken. Prior study comparison: January 04, 2019, bilateral MG screening mammo w CAD. November 15, 2017, bilateral MG screening mammo w CAD. The breast tissue is heterogeneously dense. This may lower the sensitivity of mammography. There is chronic nodularity bilaterally, stable. No significant changes when compared with prior studies. ASSESSMENT: Benign, BI-RAD 2 RECOMMENDATION: Routine screening mammogram of both breasts in 1 year.
== END | disposition home or self-care (01) ==
LOC: RADMAMWWP 08:17
PROVIDERS: ATTEND Internal Medicine
DX: Z12.31 Encounter for screening mammogram for malignant neoplasm of breast (principal); Z78.0 Asymptomatic menopausal state; Z80.3 Family history of malignant neoplasm of breast; M81.8 Other osteoporosis without current pathological fracture
CPT/HCPCS: 77067; 77080

== ENCOUNTER → 2021-08-03 | Outpatient (CLI) | payer OTHER ==
--- NOTE | 2021-08-04 08:23 | US ---
EXAMINATION TYPE: US carotid duplex BILAT DATE OF EXAM: 08/03/2021 COMPARISON: NONE CLINICAL HISTORY: R55 SYNCOPE. EXAM MEASUREMENTS: RIGHT: Peak Systolic Velocity (PSV) cm/sec ----- Right CCA: 78.2 ----- Right ICA: 96.5 ----- Right ECA: 101.7 ICA/CCA ratio: 1.2 RIGHT: End Diastole cm/sec ----- Right CCA: 24.1 ----- Right ICA: 34.4 ----- Right ECA: 17.6 LEFT: Peak Systolic Velocity (PSV) cm/sec ----- Left CCA: 88.6 ----- Left ICA: 91.9 ----- Left ECA: 68.8 ICA/CCA ratio: 1.0 LEFT: End Diastole cm/sec ----- Left CCA: 27.6 ----- Left ICA: 39.1 ----- Left ECA: 14.9 VERTEBRALS (direction of flow): Right Vertebral: Antegrade Left Vertebral: Antegrade Rhythm: Normal No significant stenosis seen. No elevated velocities. IMPRESSION: No evidence for hemodynamically significant stenosis. Criteria for Assigning % of Stenosis / Diameter reduction (Estimation based on the indirect measurements of the internal carotid artery velocities (ICA PSV). 1. Normal (no stenosis)=ICA PSV < 125 cm/s: ratio < 2.0: ICA EDV<40 cm/s. 2. Less than 50% stenosis=ICA PSV < 125 cm/s: ratio < 2.0: ICA EDV<40 cm/s. 3. 50 to 69% stenosis=ICA PSV of 125 to 230 cm/s: ration 2.0 ? 4.0: ICA EDV 40-100 cm/s. 4. Greater than 70% stenosis to near occlusion= ICA PSV > 230 cm/s: ratio > 4.0: ICA EDV > 100 cm/s. 5. Near occlusion= ICA PSV velocities may be low or undetectable: variable ratio and ICA EDV. 6. Total occlusion=unable to detect flow.
== END | disposition home or self-care (01) ==
LOC: RADUSWWP 16:47
PROVIDERS: ATTEND Internal Medicine
DX: R55 Syncope and collapse (principal)
CPT/HCPCS: 93880

== ENCOUNTER → 2022-03-25 | Outpatient (CLI) | payer OTHER ==
--- NOTE | 2022-03-26 09:01 | MM ---
Reason for Exam: Screening (asymptomatic). Last mammogram was performed 1 year(s) and 2 month(s) ago. Patient History: Menarche at age 9. First Full-Term at age 12. Postmenopausal. Estrogen for 5 months starting at age 45. Hormonal Contraceptives for 1 year from age 10 until age 11. 03/04/2008, Benign Core Biopsy on the left side. Mother had breast cancer, age 40. Risk Values: Ai 5 year model risk: 2.7%. NCI Lifetime model risk: 19.0%. Prior Study Comparison: 11/15/2017 Bilateral Screening Mammogram, [facility]. 01/04/2019 Bilateral Screening Mammogram, [facility]. 01/21/2021 Bilateral Screening Mammogram, [facility]. Tissue Density: The breast tissue is heterogeneously dense. This may lower the sensitivity of mammography. Findings: Analyzed By CAD. Mammotome biopsy clip left breast is redemonstrated. Some benign-appearing vascular calcification bilaterally is again seen. Stable well-defined round masses towards the bilateral axilla favor benign lymph nodes or simple cysts. There is no suspicious group of microcalcifications or new suspicious mass in either breast. Overall Assessment: Benign, BI-RAD 2 Management: Screening Mammogram of both breasts in 1 year. A clinical breast exam by your physician is recommended on an annual basis and results should be correlated with mammographic findings. Electronically signed and approved by: Hever Sauceda M.D.
== END | disposition home or self-care (01) ==
LOC: RADMAMWWP 11:46
PROVIDERS: ATTEND Internal Medicine
DX: Z12.31 Encounter for screening mammogram for malignant neoplasm of breast (principal); Z78.0 Asymptomatic menopausal state; Z80.3 Family history of malignant neoplasm of breast
CPT/HCPCS: 77067

== ENCOUNTER → 2022-07-16 | Outpatient (CLI) | payer OTHER ==
--- NOTE | 2022-07-16 15:00 | XR ---
EXAMINATION TYPE: XR thoracic spine complete DATE OF EXAM: 07/16/2022 CLINICAL HISTORY: pain TECHNIQUE: Frontal, lateral, and swimmer's view of thoracic spine are obtained. COMPARISON: None. FINDINGS: Thoracic spine show satisfactory alignment without evidence of acute fracture or dislocatio n. Vertebral body heights are preserved. Moderate multilevel degenerative disc space narrowing and m ild spondylosis. Visualized ribs are unremarkable. IMPRESSION: No acute fracture or dislocation is seen in the thoracic spine. ICD 10 NO FRACTURE, INIT IAL EVALUATION
--- NOTE | 2022-07-19 13:20 | XR ---
EXAMINATION TYPE: XR lumbar spine 2 or 3V DATE OF EXAM: 07/16/2022 CLINICAL HISTORY: Low back pain. TECHNIQUE: Frontal and lateral images of the lumbar spine are obtained. COMPARISON: Prior lumbar spine x-ray 12 FINDINGS: There are 5 lumbar type vertebral bodies redemonstrated. The lumbar spine shows stable an d satisfactory alignment without evidence of acute fracture or dislocation. Vertebral body heights an d disk space heights remain within normal limits. Mild to moderate anterior spurring at L3-L4 level p rominent from prior. Mild anterior spurring L4-L5 level prominent from prior. Facet arthropathy Lowe r lumbar spine is present. Mild/moderate overlying arterial vascular calcification new from prior. IMPRESSION: As above.
== END | disposition home or self-care (01) ==
LOC: RADXRMAIN 14:14
PROVIDERS: ATTEND Internal Medicine
DX: M54.6 Pain in thoracic spine (principal); M54.50 Low back pain, unspecified
CPT/HCPCS: 72072; 72100

== ENCOUNTER → 2024-02-16 | Outpatient (CLI) | payer OTHER ==
--- NOTE | 2024-02-27 20:47 | MR ---
EXAMINATION TYPE: MR cervical spine wo con DATE OF EXAM: 02/16/2024 8:54 AM CLINICAL INDICATION:Female, 54 years old with history of M54.2 CERVICALGIA; PHH, Neck pain, headaches COMPARISON: . TECHNIQUE: Multi planar, multi sequence imaging was performed utilizing: T1-weighted, T2-weighted, an d turbo inversion recovery imaging of the cervical spine. IV Contrast: cc (none if empty) FINDINGS: Alignment: The cervical vertebral bodies have preserved heights. Alignment is within normal limits gi anirudh patient positioning. Bones: Bone signal is within normal limits. No abnormal bone marrow edema on inversion recovery seque nces. Cord: The spinal cord is unremarkable with regards to their signal intensity and morphology. Discs: Intervertebral disc signal is maintained. C2-C3: No significant disc pathology. The spinal canal is patent. No neural foraminal stenosis. C3-C4: Very mild disc bulging. No significant disc pathology. The spinal canal is patent. No neural foraminal stenosis. C4-C5: No significant disc pathology. The spinal canal is patent. No neural foraminal stenosis. C5-C6: Disc bulge with superimposed broad-based extrusion which effaces the thecal sac and indents th e left ventral spinal cord. Left neural foraminal narrowing. C6-C7: Diffuse disc bulge effacing the thecal sac and touching the spinal cord without indenting the cord. No neural foraminal stenosis. C7-T1: No significant disc pathology. The spinal canal is patent. No neural foraminal stenosis. Other: None. IMPRESSION: 1. At C5-C6 Disc bulge and superimposed broad-based disc extrusion indents the cord. No abnormal cord signal. 2. Less pronounced disc disease at C6-C7 effacing the thecal sac without indenting the cord. 3. No significant disc pathology. The spinal canal is patent. No neural foraminal stenosis at remain ing levels.
== END | disposition home or self-care (01) ==
LOC: RADMRIMAIN 07:54
PROVIDERS: ATTEND Orthopaedic Surgery
DX: M50.122 Cervical disc disorder at C5-C6 level with radiculopathy (principal); M47.22 Other spondylosis with radiculopathy, cervical region
CPT/HCPCS: 72141

== ENCOUNTER → 2024-02-28 | Outpatient (CLI) | payer OTHER ==
--- NOTE | 2024-03-02 12:47 | MM ---
Reason for Exam: Screening (asymptomatic). Last mammogram was performed 1 year(s) and 11 month(s) ago. Patient History: Menarche at age 9. First Full-Term at age 12. Postmenopausal. Estrogen for 5 months starting at age 45. Hormonal Contraceptives for 1 year from age 10 until age 11. 03/04/2008, Benign Core Biopsy on the left side. Mother had breast cancer, age 40. Risk Values: Ai 5 year model risk: 3.0%. NCI Lifetime model risk: 18.3%. Prior Study Comparison: 01/04/2019 Bilateral Screening Mammogram, [facility]. 01/21/2021 Bilateral Screening Mammogram, [facility]. 03/25/2022 Bilateral MG screening mammo w CAD, [facility]. Tissue Density: The breasts are almost entirely fatty. Findings: Analyzed By CAD. Left breast biopsy clip. Right breast: There is no suspicious group of microcalcifications or new suspicious mass. Left breast: There is no suspicious group of microcalcifications or new suspicious mass. Overall Assessment: Negative, BI-RAD 1 Management: Screening Mammogram of both breasts in [address] [facility] will attempt to contact patient to return for supplemental views and ultrasound if indicated. Patient should continue monthly self-breast exams. A clinical breast exam by your physician is recommended on an annual basis. This exam should not preclude additional follow-up of suspicious palpable abnormalities. Note on Ai scores and lifetime risk: 1. A Ai score greater than 3% is considered moderate risk. If this is the case, consider specialist referral to assess eligibility for a risk reducing agent. 2. If overall lifetime risk for the development of breast cancer is 20% or higher, the patient may qualify for future screening with alternating mammogram and breast MRI. Electronically signed and approved by: Justen De Dios DO
== END | disposition home or self-care (01) ==
LOC: RADMAMWWP 15:46
PROVIDERS: ATTEND Internal Medicine
DX: Z12.31 Encounter for screening mammogram for malignant neoplasm of breast (principal); Z78.0 Asymptomatic menopausal state; Z80.3 Family history of malignant neoplasm of breast
CPT/HCPCS: 77063; 77067

== ENCOUNTER → 2024-03-14 | Outpatient (CLI) | payer OTHER ==
[2024-03-14 10:53] LABS: HGB 13.3 gm/dL (11.4-16.0); MCH 30.5 pg (25.0-35.0); MCHC 31.6 g/dL (31.0-37.0); MCV 96.6 fL (80.0-100.0); Mean Platelet Volume 10.1; Platelet Count 204 k/uL (150-450); RBC 4.35 m/uL (3.80-5.40); RDW 13.6 % (11.5-15.5); WBC 5.2 k/uL (3.8-10.6)
[2024-03-14 15:41] LABS: Blood Urea Nitrogen 18.4 mg/dL (9.0-27.0); Carbon Dioxide 25.3 mmol/L (21.6-31.8); Chloride 103 mmol/L (96-109); Sodium 141 mmol/L (135-145)
== END | disposition home or self-care (01) ==
LOC: LABPAT 09:47
PROVIDERS: ATTEND Internal Medicine Interventional Cardiology
DX: Z01.812 Encounter for preprocedural laboratory examination (principal); R94.39 Abnormal result of other cardiovascular function study
CPT/HCPCS: 80051; 82565; 84520; 85027

== ENCOUNTER 2024-03-16 07:11 | Day surgery (SDC) | payer OTHER ==
[2024-03-14 09:08] VITALS: BMI 30.4
[~2024-03-16 07:11] MED LIST changes: +ALPRAZolam 0.25 MG TAB PO PRN; +ALPRAZolam 0.5 MG TAB PO PRN; +ASPIRIN 325 MG TAB PO ONE; +ATORVASTATIN 80 MG TAB PO ONE; +HEPARIN SODIUM,PORCINE (1 ML) 2,500 UNIT in SODIUM CHLORIDE 0.9% 250 ML IRRIGATION PRN; +HEPARIN SODIUM,PORCINE 10,000 UNIT in SODIUM CHLORIDE 0.9% 1,000 ML IRRIGATION PRN; -LACTATED RINGERS 1,000 ML IV SCH; -LIDOCAINE 1% 20 ML VIAL (10MG/ML) FOR IV START INTRADERMA PRN; +NITROGLYCERIN SL TABS 0.4 MG TAB SUBLINGUAL PRN; -ONDANSETRON 4 MG/2 ML VIAL IVP PRN; +SODIUM CHLORIDE 0.9% 1,000 ML in EMPTY BAG 1 BAG IV SCH
[2024-03-16] MEDS: SODIUM CHLORIDE 0.9% 1,000 ML IV ONE (07:21)
[2024-03-16 07:33] VITALS: RESP 16; TEMP 97.1
[2024-03-16 07:57] LABS: African American GFR (CKD) 50 (>60 ml/min/1.73 sqM); Anion Gap 6 mmol/L; Blood Urea Nitrogen 24 mg/dL (7-17); Calcium 9.7 mg/dL (8.4-10.2); Carbon Dioxide 28 mmol/L (22-30); Chloride 104 mmol/L (98-107); Glucose 100 mg/dL (74-99); Non-African American GFR(CKD) 43 (>60 ml/min/1.73 sqM); Potassium 3.4 mmol/L (3.5-5.1); Sodium 138 mmol/L (137-145)
[2024-03-16] MEDS ORDERED: VERAPAMIL 2.5 MG/ML 2 ML AMP ONE (08:15)
[2024-03-16] MEDS ORDERED: fentaNYL (PF) 50 MCG/ML 2 ML AMP ONE (08:15)
[2024-03-16] MEDS ORDERED: LIDOCAINE 1% INJ 10MG/ML (20 ML MDV) ONE (08:15)
[2024-03-16] MEDS ORDERED: HEPARIN SODIUM 1,000 UN/ML (10ML VL) ONE (08:15)
[2024-03-16] MEDS: fentaNYL (PF) 50 MCG/ML 2 ML AMP IVP ONE (08:38)
[2024-03-16] MEDS: LIDOCAINE 1% INJ 10MG/ML (20 ML MDV) SQ ONE (08:44)
[2024-03-16] MEDS: MIDAZOLAM 2 MG/2 ML VIAL IVP ONE (08:46)
[2024-03-16] MEDS: VERAPAMIL SYRINGE (5 MG/10 ML) INTRAARTER ONE (08:50)
[2024-03-16] MEDS: HEPARIN SODIUM 1,000 UN/ML (10ML VL) IVP ONE (08:51)
[2024-03-16] MEDS: IOPAMIDOL-370 100ML BTL INJ ONE (08:57)
[2024-03-16] MEDS ORDERED: RX INFO: IV CONTRAST WAS GIVEN 1 EACH MISC MISCELLANE PRN (09:05)
[2024-03-16] MEDS ORDERED: NON FORMULARY DRUG (Pregabalin [Lyrica] 150 MG Capsule) PO PRN (09:06)
--- NOTE | 2024-03-16 09:10 | P.CARDCATH ---
Date of Procedure: 03/16/24 Description of Procedure: Cardiac Catheterization: The patient is a 54-year-old female with known history of hypertension, hyperlipidemia, history of ASD closure in the past who presented with symptoms of chest discomfort and dyspnea and had an abnormal MPI with apical ischemia. Recommendations were made regarding cardiac catheterization, the risks and the complications were discussed with the patient who is in full understanding and agreement. Procedure Description: Patient was brought to laborer rags in fasting semi-sedated state after receiving Fentanyl and Benadryl achieiving moderate conscious sedated state. Using Xylocaine Anesthesia and modified Seldinger technique, a 6-Malawian sheath was introduced in the right radial artery . Subsequently, selective coronary angiography was performed using a 5-Malawian 3.5 bend Jason catheter. Multiple views of the coronary artery including hemiaxial views were obtained. The 5 [place] pigtail catheter was used to cross the aortic valve and LVEDP was calculated. Following that, catheter and sheath were removed. Hemostasis was obtained with deployment of vascular band . There was no immediate complication. Patient was returned to room in stable condition. Of note, the patient received a total of 5000 units of intravenous heparin as well as intra-arterial verapamil. Findings: Left main: This is a large size vessel, bifurcating into LAD and left circumflex, left main has no obstructive disease LAD: This is a large size vessel, reaching to the apex giving rise to a proximal major septal nylon operator. The LAD gives rise to 2 diagonal branch of small caliber. The LAD and its branches have no obstructive disease Left circumflex: This is a large nondominant vessel giving rise to 2 obtuse marginal branch. The left circumflex and its branches have no obstructive disease RCA: This is a dominant vessel small in caliber distally giving rise to a small PDA and PLV the right coronary artery and its branches have no obstructive disease Left Ventriculogram: Not performed Hemodynamics: There was no gradient across aortic valve, LVEDP was 16-20 mmHg Conclusion: 1. Normal coronary arteries 2. Right dominance Recommendations: I see no evidence of significant obstructive disease, I have recommended continued medical therapy with the aggressive coronary risks modifications. The findings and the recommendations were discussed with the patient and the family and they were in full understanding and agreement. Duration of sedation is 16 minutes.
[2024-03-16] MEDS ORDERED: SODIUM CHLORIDE 0.9% 1,000 ML IV SCH (09:15)
[2024-03-16 11:32] VITALS: BP 113/64; PULSE 54
[2024-03-16] MEDS ORDERED: PRAVASTATIN SODIUM 40 MG TAB PO SCH (21:00)
[2024-03-16] MEDS ORDERED: levETIRAcetam 500 MG TAB PO SCH (21:00)
[2024-03-16] MEDS ORDERED: NON FORMULARY DRUG (Fenofibrate Nanocrystallized [Fenofibrate] 145 MG Tablet) PO SCH (21:00)
[2024-03-17] MEDS ORDERED: LOSARTAN 50 MG TAB PO SCH (09:00)
[2024-03-17] MEDS ORDERED: NON FORMULARY DRUG (Aspirin Ec 81 MG Tablet) PO SCH (09:00)
[2024-03-17] MEDS ORDERED: PROPRANOLOL HCL 80 MG PO SCH (09:00)
[2024-03-17] MEDS ORDERED: LEVOTHYROXINE 50 MCG TAB PO SCH (09:00)
[2024-03-17] MEDS ORDERED: EZETIMIBE 10 MG TAB PO SCH (09:00)
== END 2024-03-16 12:37 | disposition home or self-care (01) ==
LOC: CATHCVL 07:11
PROVIDERS: ATTEND Internal Medicine Interventional Cardiology
DX: R94.39 Abnormal result of other cardiovascular function study (principal); I10 Essential (primary) hypertension; E78.5 Hyperlipidemia, unspecified; G47.33 Obstructive sleep apnea (adult) (pediatric); Z79.82 Long term (current) use of aspirin; Z79.899 Other long term (current) drug therapy
CPT/HCPCS: 93458; 80048; C1769 ×2; C1894; J2250; J2001; J3010; J1644; Q9967

== ENCOUNTER → 2024-04-11 | Outpatient (CLI) | payer OTHER ==
[2024-04-11 09:13] VITALS: BP 148/98; PULSE 54; RESP 16
--- NOTE | 2024-04-11 14:46 | P.PAINPG ---
PQRS Measure Charge Sheet Comment: HISTORY OF PRESENT ILLNESS: A 54 yr old female as a referral from [facility] presents today w severe and chronic neck pain < 6 mo secondary to DDD, spondylosis and facet arthropathy without myelopathy for evaluation. Pt states pain level is provoked at 10 /10 in intensity, constant, localized in the lower cervical spine, predominantly axial, achy in character w occasional shooting pain towards the UEs. Pain is provoked by driving. Pain is alleviated by PT x 6 wks which ended in Feb 2024, physician guided home exercises every other day since Feb 2024, heat, ice, medications ([place], Lyrica), topical Icy-Hot, repositioning and rest . Cervical disability score at 19. PMH: OA, Hyperlipidemia, HTN, YAW, GERD, Hypothyroidism, Anxiety PSH: LESI x3 (2017), Colonoscopy (2019), Adenoidectomy, , Tonsillectomy, R Foot ORIF SH: Never smoker, Rare ETOH use, No illicit drug use FH: Mo- [place] All: See list Meds: See list REVIEW OF ORGAN SYSTEMS: CONSTITUTIONAL: No fevers or chills. No recent weight loss. NEUROLOGICAL: + numbness and tingling along the distal extremities. No seizure disorders or headaches. MUSCULOSKELETAL: + pain PSYCHIATRIC: Denies current depression or suicidal thoughts. Physical Examinations : Constitutional : Cooperative , not in acute distress . Neurologic : Cranial nerve II to XII intact. No focal neurological deficits. Psychiatric : alert & oriented x 3. Matching mood & appropriate affect. Judgment & insight intact. Musculoskeletal : Cervical Spine Motor strength in the deltoid and biceps: Normal right side. Normal Left side Motor strength biceps and the wrist extensors: Normal right side . Normal left side Motor strength in the triceps muscle: Normal right side. Normal left side Deep tendon reflexes: Normal at the biceps. Normal at Brachioradialis. Normal at triceps Vertebral body tenderness to deep palpation over C6 Cervical facet loading test: positive bilaterally Spurling test: positive bilaterally Neck distraction test: positive bilaterally C6-C7 Jameson sign: positive bilaterally Lumbar spine Motor strength lower extremities ,thigh and legs 5/5 Right side , 5/5 Left side Deep tendon reflexes : Normal Knee Jerk. Normal Ankle Jerk Vertebral body tenderness over [place] Test positive Lumbar facet Loading Test: positive Right / positive Left Range of motion of the lumbar spine Flexion 30 degrees, extension 10 degrees Straight Leg Raise test: Left/ Right positive at degrees Deepali test: positive right / positive left. Severe tenderness over the Sacroiliac joint on the Right / Left sides Gaenslen test: positive bilaterally Seated flexion test: positive bilaterally. Sacral spine : Severe tenderness over the Sacroiliac joint: right side / left side Range of motion: Flexion of the lumbar spine <60 degrees Range of motion: Extension of the lumbar spine <20 degrees Gaenslen's Test positive Deepali test: positive right side / left side Thigh Thrust Test Sacral Thrust Test Imaging: MRI non contrast cervical spine 02/16/24 reviewed Assessment/ Plan : Cervical radiculopathy Recommendation of CHUCKY C6-C7 #1. Risks, benefits of procedure discussed and patient verbalized understanding. Admits to anti- coagulant use or medical history of diabetes. Protocol for discontinuation/ continuation of medications p praful procedure discussed. Minimal anesthesia provided, if clinically indicated, consisting of Versed and Fentanyl. All questions answered. I have spent greater than 30 minutes on patient care today. Dr Magana was available by phone for the evaluation of this patient. The time was used to review the medical records including relevant urine studies and Prescription history (MAPs), review of the available imaging, evaluation and examination of the patient, coordination of care with the medical staff and if applicable referring physicians, as well as creation of the medical record PQRS Narrative: Smoking Status Never smoker Hx Alcohol Use (MH) No Home Medications: Ambulatory Orders ALPRAZolam [Xanax] 0.5 mg PO TID PRN 04/25/17 Escitalopram [Lexapro] 20 mg PO HS 04/25/17 HYDROcodone/APAP 7.5-325MG [[place] 7.5-325] 1 tab PO Q6H PRN 04/25/17 Levothyroxine Sodium [Synthroid] 88 mcg PO QAM 04/25/17 Pravastatin Sodium [Pravachol] 40 mg PO HS 04/25/17 Propranolol HCl [Inderal Xl] 80 mg PO QAM 04/25/17 SUMAtriptan succinate [Imitrex] 50 mg PO DAILY PRN 04/25/17 Triamterene-Hctz 37.5-25Mg [Dyazide 37.5-25 Capsule] 1 tab PO QAM 04/25/17 Fenofibrate Nanocrystallized [Fenofibrate] 145 mg PO HS 01/12/19 levETIRAcetam 500 mg PO BID 01/12/19 Ergocalciferol [Vitamin D2 (1250 Mcg = 24126 Iu)] 5,000 units PO WEEKLY 03/14/24 Ezetimibe [Zetia] 10 mg PO QAM 03/14/24 Ferosul 325 mg PO BID 03/14/24 Flexeril(Unknown Dose) 1 tab PO QAM PRN 03/14/24 Losartan Potassium 50 mg PO QAM 03/14/24 Pregabalin [Lyrica] 150 mg PO TID PRN 03/14/24 diazePAM [Valium] 5 mg PO DAILY PRN 1 Days #2 tab 04/11/24 Controlled Substance Measures - Controlled Substance Measures Is patient prescribed a controlled substance at discharge?: Yes When asked, does pt state using other controlled substances?: Yes If prescribed controlled substance>3 days was MAPS reviewed?: Prescribed <3 Days
== END ==
LOC: PNWHC3 08:31
PROVIDERS: ATTEND Specialist
DX: M47.22 Other spondylosis with radiculopathy, cervical region (principal)
CPT/HCPCS: 99211

== ENCOUNTER 2024-04-20 07:40 | Day surgery (SDC) | payer OTHER ==
[2024-04-20] MEDS ORDERED: DEXAMETHASONE SOD PHOSPHATE 10 MG/ML 1 ML VIAL ONE (08:33)
[2024-04-20] MEDS ORDERED: IOPAMIDOL M200 10 ML VIAL ONE (08:33)
--- NOTE | 2024-06-12 18:19 | FL ---
EXAMINATION TYPE: FL guided pain mgmt statistic DATE OF EXAM: 05/10/2024 11:08 AM COMPARISON: Pre Operative Images if available both CT/MRI or plain film CLINICAL INDICATION: Female, 54 years old with history of [employer] [employer]; TECHNIQUE: FL guided pain mgmt statistic, multiple fluoroscopic images provided for procedure. Total fluoroscopy time: 12 seconds Total submitted images to PACS: 3 DAP: 0.01077 mGym2 Gycm2 uGym2 cGycm2 or equivalent. FINDINGS: Fluoroscopic images during injection for pain management demonstrate multilevel degeneration changes throughout the spine. No evidence for fracture. No acute process identified. IMPRESSION: 1. No evidence for intraoperative complication. 2. Please see the operative/procedural note for further details. [facility], , 06/12/2024 6:17 PM
== END 2024-04-20 09:25 ==
LOC: ORPAIN 07:40
DX: M54.12 Radiculopathy, cervical region (principal); Z79.82 Long term (current) use of aspirin; Z79.899 Other long term (current) drug therapy
CPT/HCPCS: 62321

== ENCOUNTER → 2024-05-16 | Outpatient (CLI) | payer OTHER ==
[2024-05-16 08:51] VITALS: BP 150/98; PULSE 58; RESP 16; TEMP 97.6
--- NOTE | 2024-05-16 15:19 | P.PAINPG ---
PQRS Measure Charge Sheet Comment: HISTORY OF PRESENT ILLNESS: A 54 yr old female presents today w severe and chronic neck pain < 6 mo secondary to DDD, spondylosis and facet arthropathy without myelopathy for evaluation CHUCKY C6-C7 #1. Pt states she experienced 10 % pain relief x 3 wks s/p procedure. Pt states pain level is provoked at 9 /10 in intensity, constant, localized in the lower cervical spine, predominantly axial, achy in character w occasional shooting pain towards the UEs. Pain is provoked by driving. Pain is alleviated by PT x 6 wks which ended in Feb 2024, physician guided home exercises every other day since Feb 2024, heat, ice, medications, topical, repositioning and rest . Interventional procedures include CHUCKY C6-7 x1 Medications include [place], Lyrica, Icy-Hot REVIEW OF ORGAN SYSTEMS: CONSTITUTIONAL: No fevers or chills. No recent weight loss. NEUROLOGICAL: + numbness and tingling along the distal extremities. No seizure disorders or headaches. MUSCULOSKELETAL: + pain PSYCHIATRIC: Denies current depression or suicidal t houghts. Physical Examinations : Constitutional : Cooperative , not in acute distress . Neurologic : Cranial nerve II to XII intact. No focal neurological deficits. Psychiatric : alert & oriented x 3. Matching mood & appropriate affect. Judgment & insight intact. Musculoskeletal : Cervical Spine Motor strength in the deltoid and biceps: Normal right side. Normal Left side Motor strength biceps and the wrist extensors: Normal right side . Normal left side Motor strength in the triceps muscle: Normal right side. Normal left side Deep tendon reflexes: Normal at the bi ceps. Normal at Brachioradialis. Normal at triceps Vertebral body tenderness to deep palpation over C6 Cervical facet loading test: positive bilaterally Spurling test: positive bilaterally Neck distraction test: positive bilaterally C6-C7 Jameson sign: positive bilaterally Lumbar spine Motor strength lower extremities ,thigh and legs 5/5 Right side , 5/5 Left side Deep tendon reflexes : Normal Knee Jerk. Normal Ankle Jerk Vertebral body tenderness over [place] Test positive Lumbar facet Loading Test: positive Right / positive Left Range of motion of the lumbar spine Flexion 30 degrees, extension 10 degrees Straight Leg Raise test: Left/ Right positive at degrees Deepali test: positive right / positive left. Severe tenderness over the Sacroiliac joint on the Right / Left sides Gaenslen test: positive bilaterally Seated flexion test: positive bilaterally. Sacral spine : Severe tenderness over the Sacroiliac joint: right side / left side Range of motion: Flexion of the lumbar spine <60 degrees Range of motion: Extension of the lumbar spine <20 degrees Gaenslen's Test positive Deepali test: positive right side / left side Thigh Thrust Test Sacral Thrust Test Imaging: MRI non contrast cervical spine 02/16/24 reviewed Assessment/ Plan : Cervical radiculopathy Will follow up w Dr Montgomery to explore additional treatment options. All questions answered. I have spent greater than 30 minutes on patient care today. Dr Magana was available by phone for the evaluation of this patient. The time was used to review the medical records including relevant urine studies and Prescription history (MAPs), review of the available imaging, evaluation and examination of the patient, coordination of care with the medical staff and if applicable referring physicians, as well as creation of the medical record PQRS Narrative: Smoking Status Never smoker Hx Alcohol Use (MH) No Home Medications: Ambulatory Orders ALPRAZolam [Xanax] 0.5 mg PO TID PRN 04/25/17 Escitalopram [Lexapro] 20 mg PO HS 04/25/17 HYDROcodone/APAP 7.5-325MG [[place] 7.5-325] 1 tab PO Q6H PRN 04/25/17 Levothyroxine Sodium [Synthroid] 88 mcg PO QAM 04/25/17 Pravastatin Sodium [Pravachol] 40 mg PO HS 04/25/17 Propranolol HCl [Inderal Xl] 80 mg PO QAM 04/25/17 SUMAtriptan succinate [Imitrex] 50 mg PO DAILY PRN 04/25/17 Triamterene-Hctz 37.5-25Mg [Dyazide 37.5-25 Capsule] 1 tab PO QAM 04/25/17 Fenofibrate Nanocrystallized [Fenofibrate] 145 mg PO HS 01/12/19 levETIRAcetam 500 mg PO BID 01/12/19 Ergocalciferol [Vitamin D2 (1250 Mcg = 52393 Iu)] 5,000 units PO WEEKLY 03/14/24 Ezetimibe [Zetia] 10 mg PO QAM 03/14/24 Ferosul 325 mg PO BID 03/14/24 Flexeril(Unknown Dose) 1 tab PO QAM PRN 03/14/24 Losartan Potassium 50 mg PO QAM 03/14/24 Pregabalin [Lyrica] 150 mg PO TID PRN 03/14/24 diazePAM [Valium] 5 mg PO DAILY PRN 1 Days #2 tab 04/11/24 Controlled Substance Measures - Controlled Substance Measures Is patient prescribed a controlled substance at discharge?: No
== END ==
LOC: PNWHC3 08:28
PROVIDERS: ATTEND Specialist
DX: M54.12 Radiculopathy, cervical region (principal)
CPT/HCPCS: 99211

== ENCOUNTER → 2024-06-13 | Outpatient (CLI) | payer OTHER ==
--- NOTE | 2024-06-13 12:56 | CT ---
EXAMINATION TYPE: CT cervical spine wo con CT DLP: 785.80 mGycm, Automated exposure control for dose reduction was used. DATE OF EXAM: 06/13/2024 12:47 PM COMPARISON: Cervical spine radiograph 06/01/2023. CLINICAL INDICATION:Female, 54 years old with history of M47.812 SPONDYLOSIS W/O MYELOPATHY OR RADIC UM54.2; [facility], TECHNIQUE: Axial CT images from the skull base to the inferior aspect of T2 we obtained without intra venous contrast. Coronal and sagittal reformatted images were also reviewed. FINDINGS: Fracture: None. Osseous structures: Multilevel degenerative disc disease changes with endplate spurring and disc oste ophyte complex's. Vertebral alignment: No spondylolisthesis. Straightening of the cervical spine which may be due to pa tient position versus muscle spasm. Spinal canal/Neural Foramina: Disc osteophyte complexes at C5-C7 with at least mild spinal canal sten osis. Uncovertebral joint hypertrophy at these levels resulting in mild bilateral neuroforaminal sten osis. Disc bulge at C3-C4 without significant central canal stenosis. Uncovertebral joint hypertrophy at C2-C3 resulting in mild right neuroforaminal narrowing. Neck soft tissues: Prevertebral soft tissues are within normal limits. Other: The airway is patent. The lung apices are clear. Partial visualization of median sternotomy wi res and post-CABG changes. IMPRESSION: 1. No evidence of cervical spine fracture. 2. Multilevel degenerative disc disease. This is most pronounced at C5-C7 with prominent disc osteoph yte complexes resulting in at least mild spinal canal stenosis. Consider further evaluation with MRI cervical spine as clinically indicated. [facility], , 06/13/2024 12:54 PM
== END | disposition home or self-care (01) ==
LOC: RADCTMAIN 11:40
PROVIDERS: ATTEND Orthopaedic Surgery
DX: M47.812 Spondylosis without myelopathy or radiculopathy, cervical region (principal); M50.322 Other cervical disc degeneration at C5-C6 level; M25.78 Osteophyte, vertebrae; M48.02 Spinal stenosis, cervical region; R42 Dizziness and giddiness
CPT/HCPCS: 72125

== ENCOUNTER → 2024-08-02 | Outpatient (CLI) | payer OTHER ==
[2024-08-02 19:21] LABS: Basophils # (A) 0.06 X 10*3/uL (0.00-0.10); Basophils % (A) 0.8 %; Eosinophils # (A) 0.13 X 10*3/uL (0.04-0.35); Eosinophils % (A) 1.7 %; HCT 36.2 % (37.2-46.3); HGB 11.8 g/dL (12.0-15.0); Lymphocytes # (A) 2.24 X 10*3/uL (0.90-5.00); Lymphocytes % (A) 29.2 %; MCH 30.4 pg (27.0-32.0); MCHC 32.6 g/dL (32.0-37.0); MCV 93.3 FL (80.0-97.0); Mean Platelet Volume 12.3 FL (9.5-12.2); Monocytes # (A) 0.64 X 10*3/uL (0.20-1.00); Monocytes % (A) 8.3 %; NRBC Per 100 WBC 0 X 10*3/uL (0.00-0.01); Neutrophils # (A) 4.59 X 10*3/uL (1.80-7.70); Neutrophils % (A) 59.7 %; Platelet Count 252 X 10*3/uL (140-440); RBC 3.88 X 10*6/uL (4.10-5.20); RDW 14.6 % (11.5-14.5); WBC 7.68 X 10*3/uL (4.50-10.00)
[2024-08-02 20:04] LABS: Appearance,Urine Cloudy (Clear); Bilirubin,Urine Negative (Negative); Blood,Urine Negative (Negative); Color,Urine Yellow (Yellow); Ketones,Urine Negative (Negative); Nitrite,Urine Negative (Negative); Specific Gravity,Urine 1.014 (1.001-1.030)
[2024-08-02 20:21] LABS: INR 1.01 sec (0.93-1.11); Prothrombin Time 10.9 sec (9.9-11.9)
[2024-08-02 20:47] LABS: Bacteria,Urine 3+ (None Seen)
== END | disposition home or self-care (01) ==
LOC: LABPAT 16:00
PROVIDERS: ATTEND Orthopaedic Surgery
DX: Z01.812 Encounter for preprocedural laboratory examination (principal)
CPT/HCPCS: 81001; 85025; 85610; 87086

== ENCOUNTER → 2024-08-14 | Outpatient (CLI) | payer OTHER ==
[2024-08-14 19:33] LABS: ALT 29 U/L (8-44); AST 25 U/L (13-35); Albumin 4.3 g/dL (3.8-4.9); Albumin/Globulin Ratio 1.87 Ratio (1.60-3.17); Alkaline Phosphatase 42 U/L (41-126); BUN/Creat Ratio 22.58 Ratio (12.00-20.00); Blood Urea Nitrogen 27.1 mg/dL (9.0-27.0); Calcium 9.5 mg/dL (8.7-10.3); Carbon Dioxide 24.8 mmol/L (21.6-31.8); Chloride 106 mmol/L (96-109); Globulin 2.3 g/dL (1.6-3.3); Glucose 106 mg/dL (70-110); Potassium 4.1 mmol/L (3.5-5.5); Sodium 142 mmol/L (135-145); Total Bilirubin 0.3 mg/dL (0.3-1.2); Total Protein 6.6 g/dL (6.2-8.2)
== END | disposition home or self-care (01) ==
LOC: LABPAT 13:44
PROVIDERS: ATTEND Orthopaedic Surgery
DX: Z01.812 Encounter for preprocedural laboratory examination (principal); M43.12 Spondylolisthesis, cervical region; M47.12 Other spondylosis with myelopathy, cervical region; Z22.322 Carrier or suspected carrier of Methicillin resistant Staphylococcus aureus
CPT/HCPCS: 80053; 82306; 86850; 86900; 86901; 87070

== ENCOUNTER 2024-08-21 05:49 | Observation (INO) | payer OTHER ==
[~2024-08-21 05:49] MED LIST changes: -ALPRAZolam 0.25 MG TAB PO PRN; -ALPRAZolam 0.5 MG TAB PO PRN; -ASPIRIN 325 MG TAB PO ONE; -ATORVASTATIN 80 MG TAB PO ONE; -HEPARIN SODIUM,PORCINE (1 ML) 2,500 UNIT in SODIUM CHLORIDE 0.9% 250 ML IRRIGATION PRN; -HEPARIN SODIUM,PORCINE 10,000 UNIT in SODIUM CHLORIDE 0.9% 1,000 ML IRRIGATION PRN; -NITROGLYCERIN SL TABS 0.4 MG TAB SUBLINGUAL PRN; -SODIUM CHLORIDE 0.9% 1,000 ML in EMPTY BAG 1 BAG IV SCH; +TRANEXAMIC 1,000 MG/100ML-NACL 1,000 MG in SALINE 1 100ML.BAG IVPB PRN
--- NOTE | 2024-08-21 06:32 | P.HPOR ---
History of Present Illness H&P Date: 08/15/24 .D:Date: 08/15/24 : 04:44pm .T:Title: *PREOP H1 [facility] [address] [place], [place] [address] [address]| PROVIDER: ERICK BRADFORD DO CLINICAL SUMMARY: *Ms. Roblero is a 54-year-old disabled female presenting with severe cervical pain (VAS 8/10) and bilateral upper extremity radiculopathy. Imaging reveals C4-5 spondylolisthesis, C3-7 spondylosis with stenosis, and severe central/foraminal stenosis at C5-6 with cord impingement. She has failed conservative management including PT, medications, and ESIs. Physical exam demonstrates reduced upper extremity strength, positive Spurling's sign, and asymmetric reflexes. The patient is scheduled for C3-7 ACDF. DEMOGRAPHICS: Age: 54 year Height: 5'7" Weight: 200 lbs BP:/ BMI: 31.32 kg/m2 Occupation: *Disabled CC: cervical pain * VAS: 8 HISTORY: Ms. Roblero presents to the office today, 08/15/24, for a pre-oeprative appointment preceding her C3-7 ACDF. Patient continues to describe a constant sharp, aching, and throbbing cervical pain that radiates into her bilateral upper extremities. Patient states she is currently in the process of moving which has caused an exacerbation of her symptoms. Patient feels she has exhausted all conservative treatments and would like to discuss surgical options. She is currently taking [place], Flexeril, and Lyrica without resolution of her symptoms. Otherwise patient denies any f/c/sob/cp and is ambulatoryindependently. P1 The patients past social, medical, family, surgical history, as well as review of systems, have been reviewed. Please refer to the History and Physical form that has been scanned into our electronic medical record system. R0 16 points review of systems completed and as stated in HPI, all other systems reviewed are negative. PAST TREATMENTS: PAST IMAGING: YES -XR, MRI, CT TRAUMA RELATED: NO - WORK RELATED: NO - PT IN LAST 6 MONTHS: YES -Two rounds, minimal relief PHYSICIAN DIRECTED HOME EXERCISE PROGRAM: YES -SOme relief, transient ACTIVITY MODIFICAITON: YES -no BLTPP >20 lbs MEDICATIONS: YES -motrin, Tylenol, Flexeril, [place], PRednisone ALTERNATIVE INTERVENTIONS (CHIROPRACTIC, ACCUPUNCTURE, MASSAGE, RICE): YES -RICE, Massage BRACING: NO - INJECTIONS (CHUCKY, TF, RFA): YES, no relief -CHUCKY without relief. MEDICAL HISTORY: Past Medical History: REVIEWED STATED IN CHART Past Surgical History: REVIEWED STATED IN CHART Social History: REVIEWED STATED IN CHART SMOKING: Never smoker ETOH: None SUBSTANCES: None Family History: REVIEWED STATED IN CHART P1 Current Medications: Rx: ALPRAZolam 0.5 mg tablet Ref: 0 Rx: escitalopram 20 mg tablet Ref: 0 Instructions: take 1 tablet (20 mg) by oral route once daily Rx: fenofibrate Ref: 0 Rx: ferrous sulfate 325 mg (65 mg iron) tablet Ref: 0 Instructions: take 1 tablet (325 mg) by oral route once daily Rx: levothyroxine 88 mcg capsule Ref: 0 Instructions: take 1 capsule (88 mcg) by oral route once daily Rx: Fl[place] Ref: 0 Rx: pantoprazole 40 mg tablet,delayed release Ref: 0 Instructions: take 1 tablet (40 mg) by oral route once daily Rx: propranoloL 80 mg tablet Ref: 0 Instructions: take 1 tablet (80 mg) by oral route 2 times per day Rx: SUMAtriptan 50 mg tablet Ref: 0 Instructions: take 1 tablet (50 mg) by oral route after onset of migraine; may repeat after 2 hours if headache returns, not to exceed 200mg in 24hrs Rx: cyclobenzaprine 5 mg tablet Ref: 0 Instructions: take 1 tablet (5 mg) by oral route 3 times per day as needed for muscle spasm Rx: Lyrica 100 mg capsule Ref: 0 Instructions: take 1 capsule (100 mg) by oral route BID P1 PHYSICAL EXAM: General: AOX3, NAD, Well hydrate, well nourished HEENT: No lumps or masses Extremities: No color changes, no pooling INTEGUMENT: Appearance: Normal color and turgor Surgical Incisions: none Hairy Patches: ABSENT Dorsal Skin Dimples: Normal [employer] spots: ABSENT PALPATION: TTP Midline: NO Paracervical: YES Parathoracic: NO Paralumbar: NO SIJ TESTING: NOT TESTED POSTURAL BALANCE: Coronal: BALANCED Sagittal: BALANCED Shoulder height: LEVEL Pelvic Girdle: LEVEL ROM AND APPEARANCE: Neck: RESTRICTED Lumbar: UNRESTRICTED Shoulders: Symmetrical Hips: Symmetrical Knees: Symmetrical Hands: Symmetrical Feet: Symmetrical VASCULAR STATUS: PALPABLE PULSES B/L UE AND LE 2/4 RAD/ULNAR/DP/PT Edema: NONE NEUROLOGICAL EXAMINATION: Mental Status: Awake, alert, fully oriented with normal attention, concentration, and memory. Fluent appropriate speech. CRANIAL NERVES: I: Olfactory not assessed. II: Visual acuity normal, no visual field deficit noted with confrontation. III, IV: Normal pupillary reflexes & intact extraocular movements without nystagmus. V, : Intact symmetrical facial sensation. VII: Intact symmetrical facial motor movement: Hearing intact. IX, X: Intact gag, swallow, & normal voice. XI: Sternocleidomastoid, trapezius function intact. XII: Tongue midline with normal movements. TENSIONING: * L'HERMITTE'S SIG:NEG SPURLUNG'S SIGN:POS RIGHT CUBITAL TUNNEL COMPRESSION:NEG TINELS AT WRIST:NEG STRAIGH LEG RAISE:NEG CONTRALATERAL STRAIGHT LEG RAISE: NEG MOTOR EXAM (0-5/5, NT) Muscle appearance: Symmetrical, without signs of atrophy or dystrophy UPPER EXTREMITY RIGHT LEFT Shoulder Abduction 4 4+ Biceps 4 4 Triceps 4 4- Wrist Extension 4 4+ Hand Intrinsics 4 4 Dip Tanker 4 4 LOWER EXTREMITY RIGHT LEFT Hip Flexion 5 5 Knee Extension 5 5 Knee Flexion 5 5 Dorsiflexion 5 5 Plantarflexion 5 5 EHL 5 5 FHL 5 5 REFLEXES (0-4/2, NT): RIGHT LEFT Bicep 2 2 Brachioradialis 2 1 Triceps 3 1 Patellar 2 2 Achilles 2 2 PATHOLOGICAL REFLEXES: RIGHT LEFT HUMPHREY'S ABSENT ABSENT CLONUS ABSENT ABSENT BABINSKI ABSENT ABSENT RECTAL TONE: INTACT/NT SENSATION (0-4, NT): Sensation intact to LT and Pain * C5-T1 distribution BUE * L2-S2 distribution BLE *Exceptions below* DERMATOMAL DEFICIT/RADICULAR PATTERN: C4-7 GAIT AND FUNCTIONAL EVALUATION: AMBULATORY AID none ROMBERG'S TEST INTACT HAND AND FINGER DEXTERITY INTACT YES DYSDIADOCHOKINESIA EXAM NEG B/L YES TOE/HEEL WALK INTACT WITH GOOD BALANCE YES SQUAT AND RISE W/O ASSISTANCE TO 60 DEG KNEE FLEXION YES SINGLE LEG STANCE INTACT TRENDELENBURG NEG IMAGING: XRay Cervical multiview (Lateral, Flexion, Extension, AP, Oblique) 6 views taken at [facility] on 06/01/23: moderate multilevel spondylitic changes with flattening of the normal lordosis. Multilevel diminished disc height.C3-7 spondylosis with foraminal stenosis. Grade 1 anterolisthesis C4 and C5. Vertebral body heights are preserved. No acute osseous abnormalities. CT Date: 06/13/24 Location: [facility] Region: cervical spine Contrast: N IMAGES ARE REVIEWED WITH THE PATIENT IN OFFICE AND DEMONSTRATE THE FOLLOWING: FINDINGS: There is a spondylolisthesis at C4-5 grade I. There is multilevel degenerative changes noted with central and foraminal stenosis at each level. There is disc collapse at C5-7 with anterior and posterior osteophyte formation. No fractures or lesion are noted. There is sclerosis related to degenerative changes and degenerative collapse. There is facet arthrosis that is moderate to severe. [facility]: FINDINGS: -At C5-C6 Disc bulge and superimposed broad-based disc extrusion indents the cord. Severe stenosis centrally and foraminally. No abnormal cord signal. -Less pronounced disc herniation and disease, moderate, at C6-C7 effacing the thecal sac without indenting the cord. -C4-5 Grade I spondylolisthesis noted with b/l foraminal stenosis and facet arthroapthy - No fractures or lesions. IMPRESSION: It was my pleasure to have seen and examined Naty. I reviewed the patient's clinical syndrome, physical findings, and imaging studies during the appointment today. It is my impression that the patient has a diagnosis of. 1.C4-5 spondylolisthesis 2.C3-7 spondylosis with stenosis 3.Upper extremity paresthesias 4. Neck pain PLAN: DISCUSSION: -I have discussed treatment options with the patient. At this point she has failed CHUCKY, Rx, OTC meds, PT, HEP and multiple conservative modalities and continues to have instability, pain and weakness related to her neck. We discused surgical options and she has elected to proceed as is outlined below. SURGICAL RECOMMENDATION -C3-7 ANTERIOR CERVICAL DISCECOMTY AND FUSION SURGICAL AUTHORIZATION RATIONAL AND RISK REVIEW PATIENT: Naty Roblero DATE: 07/02/2024 PROCEDURE: C3-7 Anterior Cervical Discectomy and Fusion CPT CODES: * 13321: Anterior cervical discectomy and fusion (ACDF), including disc space preparation, discectomy, osteophytectomy and decompression of spinal cord and/or nerve roots; cervical below C2, initial level 06228 x3: ACDF - each additional level (for levels 2, 3, and 4) 89051: Anterior instrumentation; 2-3 vertebral segments 48667 x4: Insertion of interbody biomechanical device(s) with integral anterior instrumentation for device anchoring to intervertebral disc space in conjunction with interbody arthrodesis, each interspace ICD-10 CODES: * M43.12: Spondylolisthesis, cervical region M48.02: Spinal stenosis, cervical region M50.20: Cervical disc displacement M47.12: Cervical spondylosis with radiculopathy M54.2: Cervicalgia CLINICAL PRESENTATION: Ms. Roblero is a 54-year-old female presenting for evaluation of cervical spine pain with radiculopathy. In our visit today, we have reviewed her subjective complaints, physical examination findings, and previous conservative treatments. IMAGING FINDINGS: The patient's imaging demonstrates: * Grade I spondylolisthesis at C4-5 Multilevel degenerative changes with central and foraminal stenosis C3-7 Severe stenosis at C5-6 with disc extrusion indenting the cord Moderate disc herniation at C6-7 effacing the thecal sac Moderate to severe facet arthrosis PHYSICAL EXAMINATION FINDINGS: Ms. Roblero demonstrates: * Reduced motor strength in bilateral upper extremities (4/4+/5) Positive Spurling's sign on the right Dermatomal deficits in C4-7 distribution Restricted cervical ROM Asymmetric reflexes (particularly triceps R:3, L:1) MEDICAL NECESSITY RATIONALE: * Failed Conservative Treatment: * Physical therapy (two rounds with minimal relief) Medications (NSAIDs, muscle relaxants, nerve pain medications) CHUCKY without relief Activity modification Home exercise program * Progressive Neurological Deficits: Documented motor weakness in bilateral upper extremities Dermatomal sensory changes Asymmetric reflexes Positive Spurling's sign Imaging Correlation: MRI evidence of cord impingement at C5-6 CT confirmation of structural instability (spondylolisthesis) Multilevel stenosis with both central and foraminal compromise Progressive degenerative changes with osteophyte formation Functional Impact: VAS pain score: 8/10 Currently disabled from work Activities of daily living significantly impacted Failed conservative management over appropriate time course SURGICAL RISKS DISCUSSED: All surgical procedures come with inherent risks, including those related to positioning, anesthesia, intraoperative findings, and postoperative complications. The following risks were specifically discussed with the patient: * Experiencing same, different or worse symptoms in neck or arms compared to before surgery Requiring further surgery or other forms of treatment presently or at some time in the future Severe complications including but not limited to: * Blindness, stroke, heart attack Temporary and/or permanent nerve injury Paralysis Infection CSF leak Dysphagia Hardware complications (misplacement, failure, loosening) Adjacent segment disease Non-union Bleeding complications DVT/PE Medical complications including cardiopulmonary events DISCUSSION: I have explained to the patient that as her condition progresses, it may cause further neurological deficits and potential myelopathy. Based on her imaging, physical exam, and the progressive nature of her symptoms despite conservative care, I recommend surgery in the form of a C3-7 Anterior Cervical Discectomy and Fusion. The patient understands the risks and benefits as discus sed above and wishes to proceed with surgical intervention. Prior to surgery, she will follow up with her PCP for medical clearance given her medical comorbidities. CONCLUSION: Ms. Roblero has demonstrated appropriate surgical indications including failed conservative care, progressive neurological deficits, and corresponding imaging findings. The proposed surgical intervention is medically necessary and appropriate for her condition. FOLLOW UP: *post op PLAN AT NEXT VISIT: * RECHECK PATIENT EDUCATION: Medications Reviewed: YES In our visit today Ms. Roblero and I have had a chance to go over my understanding of the patient's current condition, the natural course history without intervention and various interventional options. Questions were invited and answered, and the patient wishes to proceed as outlined above. I will be sure to keep you updated after Ms. Roblero returns here for further follow-up. Thank you again for your referral. Please do not hesitate to contact me if you have any further questions. Signed and authenticated by: Erick Huddleston [facility] [address] [place] [phone] . This message is confidential, intended only for the named recipient(s) and may contain information that is privileged or exempt from disclosure under applicable law. If you are not the intended recipient(s), you are notified that the dissemination, distribution or copying of this information is prohibited. If you received this message in error, please notify the sender then delete this message. Past Medical History Past Medical History: Chest Pain / Angina, Fibromyalgia, Hyperlipidemia, Hypertension, Osteoarthritis (OA), Seizure Disorder, Sleep Apnea/CPAP/BIPAP, Thyroid Disorder Additional Past Medical History / Comment(s): Hx seizures prior to age 28, prior to open heart sx, last seizure 2020, hx. heart murmur, no recent chest pain, Hx migraines, chronic back pain, CPAP use. hx. anemia History of Any Multi-Drug Resistant Organisms: None Reported Past Surgical History: Adenoidectomy, Section, Heart Catheterization, Orthopedic Surgery, Tonsillectomy Additional Past Surgical History / Comment(s): Open heart sx to repair congenital heart defect at age 28, rt foot ORIF. right cataract removed & stents both eyes for glaucoma Past Anesthesia/Blood Transfusion Reactions: No Reported Reaction Additional Past Anesthesia/Blood Transfusion Reaction / Comment(s): No hx of blood transfusion. Smoking Status: Never smoker - Past Family History Mother Family Medical History: Cancer Additional Family Medical History / Comment(s): Breast cancer. Father Family Medical History: Cancer Additional Family Medical History / Comment(s): Prostate cancer Medications and Allergies Home Medications Medication Instructions Recorded Confirmed Type ALPRAZolam [Xanax] 0.5 mg PO TID PRN 04/25/17 08/16/24 History Escitalopram [Lexapro] 20 mg PO HS 04/25/17 08/16/24 History HYDROcodone/APAP 7.5-325MG [Fl[place] 1 tab PO Q6H PRN 04/25/17 08/16/24 History 7.5-325] Levothyroxine Sodium [Synthroid] 88 mcg PO QAM 04/25/17 08/16/24 History Propranolol HCl [Inderal Xl] 80 mg PO QAM 04/25/17 08/16/24 History Triamterene-Hctz 37.5-25Mg 1 tab PO QAM 04/25/17 08/16/24 History [Dyazide 37.5-25 Capsule] Fenofibrate Nanocrystallized 145 mg PO HS 01/12/19 08/16/24 History [Fenofibrate] levETIRAcetam 500 mg PO BID 01/12/19 08/16/24 History Ergocalciferol [Vitamin D2 (1250 5,000 units PO WEEKLY 03/14/24 08/16/24 History Mcg = 87854 Iu)] Ezetimibe [Zetia] 10 mg PO QAM 03/14/24 08/16/24 History Ferosul 325 mg PO BID 03/14/24 08/16/24 History Losartan Potassium 50 mg PO QAM 03/14/24 08/16/24 History Pregabalin [Lyrica] 150 mg PO TID PRN 03/14/24 08/16/24 History Allergies Allergy/AdvReac Type Severity Reaction Status Date / Time No Known Allergies Allergy Verified 08/16/24 12:17 Physical Examination Osteopathic Statement: *. No significant issues noted on an osteopathic structural exam other than those noted in the History and Physical/Consult.
[2024-08-21] MEDS: ACETAMINOPHEN TAB 500 MG TAB PO PRN (06:54)
[2024-08-21] MEDS: ONDANSETRON 4 MG/2 ML VIAL IVP PRN (06:55)
[2024-08-21] MEDS: MIDAZOLAM 2 MG/2 ML VIAL IV PRN (07:00)
[2024-08-21] MEDS: LACTATED RINGERS 1,000 ML IV SCH (07:20)
[2024-08-21] MEDS ORDERED: SUCCINYLCHOLINE CHLORIDE 200 MG/10 ML VIAL IV ONE (07:28)
[2024-08-21] MEDS ORDERED: GLYCOPYRROLATE 0.2 MG/ML 2 ML VIAL ONE (07:28)
[2024-08-21] MEDS ORDERED: ROCURONIUM 10 MG/ML (5 ML VIAL) IV ONE (07:28)
[2024-08-21] MEDS ORDERED: PROPOFOL 10 MG/ML 20 ML VIAL IV ONE (07:28)
[2024-08-21] MEDS ORDERED: fentaNYL (PF) 50 MCG/ML 2 ML AMP ONE (07:28)
[2024-08-21] MEDS ORDERED: ePHEDrine 50 MG/ML 1 ML VIAL ONE (07:28)
[2024-08-21] MEDS ORDERED: NEOSTIGMINE 1 MG/ML 10 ML VIAL ONE (07:28)
[2024-08-21] MEDS ORDERED: LIDOCAINE 1% INJ 10MG/ML (20 ML MDV) ONE (07:28)
[2024-08-21] MEDS ORDERED: WATER FOR INJECTION, STERILE 10 ML VIAL IV ONE (07:28)
--- NOTE | 2024-08-21 07:58 | P.ANPRN ---
Procedure Note - Anesthesia - Invasive Line Left Arterial Line Time Out Performed: Yes ([id number]) Date of Procedure: 08/21/24 Time of Procedure: 07:05 Location of Patient: PreOp Preparation: Sterile Prep, Sterile Dressing Arterial Line Location: Radial Ultrasound Used: Yes Purpose - Visualization and Identification of Vasculature: Yes Needle Guage: 20-gauge Image Stored and Saved: Yes Narrative: Invasive line placement per sterile protocol utilized. 20-gauge 4.5 cm length Arrow catheter used with 1 attempt. Secured with suture, Biopatch , and sterile dressing applied.
[2024-08-21] MEDS: THROMBIN (BOVINE) 5,000 UNIT VIAL TOPICAL ONE (08:17)
[2024-08-21] MEDS: LACTATED RINGERS 1,000 ML IV ONE (09:57)
--- NOTE | 2024-08-21 10:28 | P.OP ---
Date of Procedure: 08/21/24 Preoperative Diagnosis: 1. C4-5 SPONDYLOLISTHESIS, GRADE I UNSTABLE 2. 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 UE RADICULOPATHY 4. UE WEAKNESS 5. NECK PAIN Postoperative Diagnosis: 1. C4-5 SPONDYLOLISTHESIS, GRADE I UNSTABLE 2. 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 UE RADICULOPATHY 4. UE WEAKNESS 5. NECK PAIN Procedure(s) Performed: 1. C4-5 ANTERIOR CERVICAL DISCECOMTY AND FUSION 2. C5-6 ANTERIOR CERVICAL DISCECOMTY AND FUSION 3. C6-7 ANTERIOR CERVICAL DISCECOMTY AND FUSION 4. C4-5, C5-6, C6-7 ANTERIOR INSTRUMENTATION 5. C4-5, C5-6, C6-7 INSERTION OF BIOMECHANICAL DEVICE, CAGE x3 USE OF IONM USE OF IO MICROSCOPE Implants: GLOBUS COALITION MIS CAGES WITH PLATE AND ANCHORS. 8MM HIGH LORDOSIS XXL. x3 [employer] Anesthesia: GETA Surgeon: Mamadou Montgomery Tax Processor #1: Jeison Mendiola (WAS PRESENT AND ASSISTED WITH ALL ASPECTS OF THE CASE FROM POSITION TO DRESSING PLACEMENT) Estimated Blood Loss (ml): 50 IV fluids (ml): 1,000 Urine output (ml): 150 Pathology: none sent Condition: stable Disposition: PACU Indications for Procedure: Spine Surgery Clinical and Risk Review Naty Roblero is a 54 YO FEMALE presenting for evaluation of NECK PAIN, UE PAIN AND RADICULAR SX. It was my pleasure to have seen and examined Naty Roblero. In our visit today we have had a chance to go over subjective complaints, physical examination findings and treatments including the natural course history without intervention and various interventional options. The patients imaging demonstrates : There is a spondylolisthesis at C4-5 grade I. There is multilevel degenerative changes noted with central and foraminal stenosis at each level. There is disc collapse at C5-7 with anterior and posterior osteophyte formation. No fractures or lesion are noted. There is sclerosis related to degenerative changes and degenerative collapse. There is facet arthrosis that is moderate to severe. [facility] Cerv[facility]ine: FINDINGS: -At C5-C6 Disc bulge and superimposed broad-based disc extrusion indents the cord. Severe stenosis centrally and foraminally. No abnormal cord signal. -Less pronounced disc herniation and disease, moderate, at C6-C7 effacing the thecal sac without indenting the cord. -C4-5 Grade I spondylolisthesis noted with b/l foraminal stenosis and facet arthroapthy On physical exam, Naty Roblero demonstrates: UE RADICULOPATHY, NECK PAIN, PAIN RADIATING DOWN HER ARMS TOHER HANDS WITH DIFFICULTY WITH FINE MOTOR SKILLS, DROPPING OBJECTS AND DIFFICULTY WITH ADL DUE TO HER NECK. I have explained to the patient that as their condition progresses it will cause further neurological deficits and eventual paralysis. Based on the patients imaging, physical exam, and the rapid progression and disabling nature of their symptoms, at this time I recommend surgery in the form or a: C4-7 ANTERIOR CERVICAL DISECTOMY AND FUSION. I discussed the risk and benefits of this procedure at length with Naty Roblero. The patient significant other agreed to considered pursuing the procedure abovementioned. Prior to surgery, she should follow up with her PCP (Cardio, ID, IM etc) for clearance. Questions were invited and answered, and the patient wishes to proceed as outlined below. Currently, I am recommendin. C4-7 ANTERIOR CERVICAL DISECTOMY AND FUSION 2. Follow up with PCP for surgical clearance 3. Review of surgical risks and benefits as well as an educational packet on the proposed surgical procedure. Risks: All surgical procedures come with inherent risks, including those related to positioning, anesthesia, intraoperative findings, and postoperative complications. It is important to understand that surgery does not come with any guarantee of a successful outcome as complications and adverse events are always possible. The patient was given a handout in office today discussing the surgical procedure and risks associated with the intervention, both of which were discussed with the patient. These risks include but are not limited to the following: * Experiencing same, different or even worse symptoms in back, neck, arms, or legs compared to before surgery. * Requiring further surgery or other forms of treatment presently or at some time in the future at same or other levels of the intended spine surgery. * On an extreme but fortunately relatively rare basis severe complication such as blindness, stroke, heart attack, temporary and/or permanent nerve injury, paralysis, coma, or may occur, sometimes without known explanation. * Surgical complications may include but are not limited to risk of infection, fluid accumulation in the surgical dissection site, including a seroma or hematoma, that requires additional surgery, wound drainage, bleeding, new numbness or weakness, vision changes/loss, spinal fluid leakage, non-healing and/or infected incision, headaches, difficulty or inability to swallow, hoarseness, hemopneumothorax, pneumothorax, impotence, retrograde ejaculation, vaginal dryness; injury to nerves, spinal cord, blood vessels, lymphatics or other vital organs (i.e., bowel injury, injury to the great vessels); heterotopic bone formation; complications related to the hardware such as screws, rods, cages including misplaced hardware, device failure, instrumentation at the wrong spine level, hardware fracture/breakage, or hardware loosening; vertebral failure of the spinal column above or below the newly placed hardware; retained surgical instrumentations or devices and the need for further surgery. * Medical risks of the planned spine surgery include but are not limited to generalized Infections to the whole body or local areas outside of the surgical site (sepsis), heart attack, bleeding, anaphylaxis, meningitis, seizure, epilepsy, hearing loss, burn montes, laceration of the head or other areas of the body, bruising, hypersensitivity of the skin, bladder over distension; allergic reaction; shoulder injury related to positioning; fat, blood and air clots to other areas of the body like heart, lungs, brain; failure of internal organs such as lungs, kidneys, liver and excessive bleeding. If blood transfusions are necessary, note that transfusions may cause intolerance reactions such as anaphylaxis or other complex reactions. * Despite best efforts, the results of spine surgery might not heal in terms of bone, soft tissues such as skin, fascia, ligaments, and joints. Additionally, in order to achieve best possible results, spine surgery may be carried out beyond the initially planned levels and involve decompression, fusion including insertion of hardware at levels other than the original intended area of surgical interest change some portions of the procedure in order to ensure the best possible outcomes. * With spine surgery and spinal fusion, there are different off label uses of instrumentation (devices, implants and hardware) as well as biological substances (bone morphogenic proteins, demineralized bone matrix) as well as using extra bone from allograft sources (i.e. cadaver bone) or autograft (iliac crest bone, ribs, or the spine itself). The patient has been given information about these practices and their inherent risks and benefits. The patient has had a chance to review all the listed information, has been given print outs detailing this information, and has had all his/her questions answered to their satisfaction. It was my pleasure to have seen and examined Naty Roblero. In our visit today we have had a chance to go over my understanding of our patient's current condition, the natural course history without intervention and various interventional options. Questions were invited and answered, and the patient wishes to proceed as outlined above. I have seen and examined the patient for 25 minutes and we have spent more than 50% of the time in repeat and detailed counseling about the patient's condition, its natural course history with out and as much as can be predicted with surgery and re-review of various surgical treatment options. In conclusion, Naty Roblero and spouse requested we proceed with the above suggested surgery and are willing to accept risks and limitations of the curry ggested surgery as nature of the disease process and our best attempts at treatment for the condition. Thank you again for allowing us to be part of your patient's care. Please don't hesitate to contact me if you have any further questions. Signed and authenticated by: Mamadou Munson [facility] [address] [place] [address] Description of Procedure: C4-7 ACDF The patient was seen and examined in the preoperative area. All preoperative protocols were followed. Informed consent was obtained, risks and benefits of the procedure were discussed at length. Risks including bleeding infection damage to the surrounding tissue and risk of reoperation were discussed with the patient. Risk of anesthesia up to and including was discussed with the patient. These are outlined in the risk review. They were willing to accept these risks and all the risks of surgery. The patient was given a weight-based dose of antibiotics in the form of 2 g Ancef. The patient was seen and evaluated by the anesthesia team who deemed them fit for surgery. The site was marked, the patient was willing to proceed with the procedure. The patient was transferred to the operative suite by the Department of anesthesia. They were then drifted off to sleep by the department anesthesia and GETA was performed. The patient tolerated this well. Cardona catheter was placed by nursing staff, a-traumatically. Once confirmation of lines and ventilation the patient was transferred to a Supine Eladio table very carefully. All bony prominences including wrists, elbows, axilla, chest, hips, and thighs, and feet were padded very well. Special attention was paid to the genitalia, and these were padded accordingly. SCDs were placed on bilateral lower extremities and were connected. Arms were well padded and placed at their side thumbs up. Once in position, again we confirmed good ventilation capabilities and that lines were running appropriately. The patients Cervical spine was then exposed. 1010s were placed outlining the incision site. Standard alcohol was used to clean the incision site and allowed to dry. C-arm was used to bio-amanda the patient and confirm level for incision which was marked with a skin marker. Operative briefing was performed with all teams and everyone in agreement to proceed. The patient was then prepped and draped in a normal sterile fashion. Timeout was then performed, and all parties agreed with the procedure to be performed. Transverse skin incision was then made on the right side of the patient's neck 3 cm and dissection taken down to the platysma which was split transversely. Sub platysma flap was made, and interval identified between SCM and medial structures. Omohyoid was visualized and protected. Blunt dissection taken down to the anterior cervical fascia which was identified. Blunt probe was then placed and lateral image taken which confirmed levels for operation. These levels were then marked with a bovi. Subperiosteal dissection of the longissimus muscles were then done over these levels identifying uncovertebral joints bilaterally. Retractor was then placed deep to these muscles and held in place with a bed arm. Starting at C6-7, [place] pins were placed into C6 and C7 and gentle distraction taken out over the levels. Dwayne rongeur used to remove disc material. Opera ting microscope brought in for visualization. Complete discectomy performed at this level with curette, rongure and pituitary. High speed grzegorz used to remove osteophytes anteriorly and posteriorly until PLL was identified. 6-0 up curette then used to identify the canal and resect the PLL. 2-0 and 3-0 Kerrison used then to remove PLL and disc herniation and performed b/l foraminotomies. Once g ood decompression was accomplished, meticulous hemostasis was performed. Sizers were then placed under lateral fluoroscopy until the desired height and lordosis. Cage was then selected, assembled on the back table packed with autograft and allograft and placed under lateral imaging. Once in good position it was tested and stable. Motors run before and after cage placement were stable. The wound was irrigated, and autograft placed lateral to the cage anteriorly for fusion. [place] pin was then removed from C7 and placed into C5. Gentle distraction taken out over C5-6 now. Complete discectomy done at C5-6 as described including decompression, b/l foraminotomies and PLL resection. Burring of endplates was minimal, osteophytes removed as described. Spacers were then sized and placed under lateral imaging. Cage selected, packed with graft and placed under lateral images. Once in position, meticulous hemostasis performed, and motors remained stable before and after cage placement. AP image confirmed good placement of cages. Wound was irrigated. [place] pin was then removed from C6 and placed into C4. Gentle distraction taken out over C4-5 now. Complete discectomy done at C4-5 as described including decompression, b/l foraminotomies and PLL resection. Burring of endplates was minimal, osteophytes removed as described. Spacers were then sized and placed under lateral imaging. Cage selected, packed with graft and placed under lateral images. Once in position, meticulous hemostasis performed, and motors remained stable before and after cage placement. AP image confirmed good placement of cages. Wound was irrigated. At all levels anterior instrumentation was then done. Anchors were placed and were stable and in good position on AP and LAT imaging. All locking mechanisms were set, and all anchors had good purchase. Final AP and lateral images taken confirmed good placement of hardware and good reduction and mandaeism of height. The wound was then irrigated copiously with NSS. Surgicel placed deep in the wound. A deep drain placed out a separate incision and sewed into place. Layered closure then performed with 3-0 Vicryl in the platysma and subQ tissue. 4-0 Strata fix in the subcuticular tissue. The wound was then cleaned, and dried and skin glue placed. Once glue dried on Opifoam was placed. The patient was then transferred back to their hospital bed a-traumatically. The drain continued to hold suction. They were placed in a soft collar. They were then awakened by the department of anesthesia having tolerated the proce dure well without complications.
--- NOTE | 2024-08-21 10:36 | FL ---
EXAMINATION TYPE: FL guidance operating room, XR cervical spine 1V DATE OF EXAM: 08/21/2024 10:20 AM COMPARISON: Pre Operative Images if available both CT/MRI or plain film CLINICAL INDICATION: Female, 54 years old with history of ANTERIOR CERVICAL FUSION; TECHNIQUE: FL guidance operating room, XR cervical spine 1V, multiple fluoroscopic images provided fo r procedure. Total fluoroscopy time: 30 seconds Total submitted images to PACS: 7 DAP: 3.4209 mGym2 Gycm2 uGym2 cGycm2 or equivalent. FINDINGS: Fluoroscopic images during internal fixation demonstrate hardware in appropriate position. Hardware a ppears intact. No immediate complication identified. IMPRESSION: 1. No evidence for intraoperative complication. 2. Please see the operative/procedural note for further details. [facility], , 08/21/2024 10:33 AM
[2024-08-21] MEDS ORDERED: HYDROcodone/APAP 10-325MG 1 EACH TAB PO PRN (11:17)
[2024-08-21] MEDS ORDERED: NA PHOS,M-B/NA PHOS,DI-BA 133 ML ENEMA RECTAL PRN (11:17)
[2024-08-21] MEDS ORDERED: MAGNESIUM HYDROXIDE 2,400 MG/30 ML CUP PO PRN (11:17)
[2024-08-21] MEDS ORDERED: HYDROmorphone 1 MG/ML 1 ML SYRINGE IVP PRN (11:17)
[2024-08-21] MEDS ORDERED: bisacodyL 10 MG SUPP RECTAL PRN (11:17)
[2024-08-21] MEDS ORDERED: ONDANSETRON 4 MG/2 ML VIAL IVP PRN (11:17)
[2024-08-21] MEDS: KETOROLAC 15 MG/ML 1 ML VIAL IVP ONE (11:49)
[2024-08-21] MEDS: HYDROmorphone 0.5 MG/0.5 ML SYRINGE IVP PRN ×2 (13:13→18:52)
[2024-08-21] MEDS ORDERED: PREGABALIN 75 MG CAP PO PRN (16:04)
[2024-08-21] MEDS ORDERED: HYDROcodone/APAP 7.5-325MG 1 EACH TAB PO PRN (16:04)
[2024-08-21] MEDS ORDERED: ALPRAZolam 0.5 MG TAB PO PRN (16:04)
[2024-08-21] MEDS: ACETAMINOPHEN TAB 325 MG TAB PO SCH (16:16)
[2024-08-21] MEDS: PREGABALIN 75 MG CAP PO SCH (17:28)
[2024-08-21] MEDS: KETOROLAC 15 MG/ML 1 ML VIAL IVP SCH (17:28)
[2024-08-21] MEDS: hydrALAZINE HCL 20 MG/ML 1 ML VIAL IVP PRN (17:30)
[2024-08-21] MEDS: FENOFIBRATE 160 MG TAB PO SCH (21:01)
[2024-08-21] MEDS: ESCITALOPRAM 20 MG TAB PO SCH (21:01)
[2024-08-21] MEDS: levETIRAcetam 500 MG TAB PO SCH (21:01)
[2024-08-21] MEDS: FERROUS SULFATE 325 MG TAB PO SCH (21:01)
[2024-08-22] MEDS: LEVOTHYROXINE 88 MCG TAB PO SCH (06:26)
[2024-08-22 09:22] LABS: Basophils # (A) 0.03 X 10*3/uL (0.00-0.10); Basophils % (A) 0.3 %; Eosinophils # (A) 0.08 X 10*3/uL (0.04-0.35); Eosinophils % (A) 0.9 %; HCT 32.7 % (37.2-46.3); HGB 10.5 g/dL (12.0-15.0); MCH 30.3 pg (27.0-32.0); MCHC 32.1 g/dL (32.0-37.0); MCV 94.5 FL (80.0-97.0); Mean Platelet Volume 12.8 FL (9.5-12.2); Monocytes # (A) 0.83 X 10*3/uL (0.20-1.00); Monocytes % (A) 9.1 %; NRBC Per 100 WBC 0 X 10*3/uL (0.00-0.01); Neutrophils # (A) 7.09 X 10*3/uL (1.80-7.70); Neutrophils % (A) 77.3 %; Platelet Count 169 X 10*3/uL (140-440); RBC 3.46 X 10*6/uL (4.10-5.20); RDW 14.7 % (11.5-14.5); WBC 9.17 X 10*3/uL (4.50-10.00)
[2024-08-22] MEDS: LOSARTAN 50 MG TAB PO SCH (09:27)
[2024-08-22] MEDS: polyethylene glycoL 3350 17 GM POWD.PACK PO SCH (09:27)
[2024-08-22] MEDS: SENNOSIDES-DOCUSATE SODIUM 1 EACH TAB PO SCH (09:28)
[2024-08-22] MEDS: TRIAMTERENE-HCTZ 37.5-25MG 1 EACH CAP PO SCH (09:29)
[2024-08-22] MEDS: EZETIMIBE 10 MG TAB PO SCH (09:29)
[2024-08-22 09:32] LABS: BUN/Creat Ratio 15.13 Ratio (12.00-20.00); Blood Urea Nitrogen 22.7 mg/dL (9.0-27.0); Carbon Dioxide 25.3 mmol/L (21.6-31.8); Chloride 104 mmol/L (96-109); Glucose 104 mg/dL (70-110); Potassium 3.6 mmol/L (3.5-5.5); Sodium 141 mmol/L (135-145)
[2024-08-22 09:33] LABS: Calcium 8.7 mg/dL (8.7-10.3)
--- NOTE | 2024-08-22 10:26 | P.PN ---
Subjective Progress Note Date: 08/22/24 Principal diagnosis: Status post C4-C7 ACDF Patient evaluated at bedside, she is resting in her hospital bed. The rigid c- collar is in good position. The 88 drain in the anterior aspect of the neck is in good position and condition. Patient is having minimal discomfort at this time. She has been up and ambulating to the restroom with no difficulty, and urinating with no problems. She is passing gas at this time. Patient denies any new onset weakness to the bilateral upper or lower extremities. Patient denies any headaches, headedness, chest pain or shortness of breath Objective - Vital Signs Vital signs: Vital Signs Temp 98.1 F 08/22/24 06:55 Pulse 60 08/22/24 06:55 Resp 16 08/22/24 06:55 BP 146/78 08/22/24 06:55 Pulse Ox 95 08/22/24 06:55 FiO2 Intake & Output 08/21/24 08/22/24 08/22/24 18:59 06:59 18:59 Intake Total 2250 Output Total 550 10 Balance 1700 -10 Weight 90.6 kg Intake: IV 2250 Output: Drainage 10 Neck 10 Urine 500 Estimated Blood Loss 50 Other: Voiding Method Toilet # Voids 1 1 - Exam Gen: AOx3, NAD VSS stable at this time Integument: postop dressing is in good position and condition, the drain is putting out a moderate amount of bloody serosanguineous fluid Palpation: Mild tenderness with palpation surrounding the incision, there is no posterior cervical pain noted at this time ROM: Full range of motion in all major muscle groups of the bilateral upper and lower extremities, no focal deficits appreciated Sensory Exam: Senory exam to light touch is intact C5-T1 Senosry exam to light touch is intact L2-S1 Motor: 4/5 strength appreciated the bilateral upper extremities with shoulder elevation, shoulder abduction, wrist extension, wrist flexion, elbow extension, elbow flexion, 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 LINO hose and compression stockings Rigid c-collar to remain in place, okay to take breaks from it while being in a stationary position No bending, lifting or twisting Medical recommendations appreciated Encourage incentive spirometer Discharge planning: Will plan to keep patient in hospital for an additional 24 hours to monitor drain output, hopeful discharge to home with home health care on 08/23/2024 Time with Patient: Less than 30
--- NOTE | 2024-08-22 10:35 | P.CONS ---
History of Present Illness - Reason for Consult Consult date: 08/21/24 - History of Present Illness Naty Roblero, is a 54-year-old female patient who presented for an elective C4-C7 anterior fusion with Dr. Haynes send on 08/21/2024 patient has a past medical history of neck pain and headaches. Additional medical history includes chest pain, fibromyalgia, hyperlipidemia, hypertension, seizure disorder, sleep apnea, thyroid disorder heart defect requiring open heart surgery at age 28 and anxiety. At this time patient is resting comfortably in bed with c-collar current vital signs temp 97.8, heart 55, respiratory rate 17, blood pressure 144/84 with pulse ox of 98% on 3 L. Patient denies chest pain or shortness of breath. Patient denies nausea vomiting or diarrhea. Patient denies any burning or frequency Review of Systems Please refer to HPI otherwise unremarkable Past Medical History Past Medical History: Chest Pain / Angina, Fibromyalgia, Hyperlipidemia, Hypertension, Osteoarthritis (OA), Seizure Disorder, Sleep Apnea/CPAP/BIPAP, Thyroid Disorder Additional Past Medical History / Comment(s): Hx seizures prior to age 28, prior to open heart sx, last seizure 2020, hx. heart murmur, no recent chest pain, Hx migraines, chronic back pain, CPAP use. hx. anemia History of Any Multi-Drug Resistant Organisms: None Reported Past Surgical History: Adenoidectomy, Section, Heart Catheterization, Orthopedic Surgery, Tonsillectomy Additional Past Surgical History / Comment(s): Open heart sx to repair congenital heart defect at age 28, rt foot ORIF. right cataract removed & stents both eyes for glaucoma Past Anesthesia/Blood Transfusion Reactions: No Reported Reaction Additional Past Anesthesia/Blood Transfusion Reaction / Comm: No hx of blood transfusion. Smoking Status: Never smoker - Past Family History Mother Family Medical History: Cancer Additional Family Medical History / Comment(s): Breast cancer. Father Family Medical History: Cancer Additional Family Medical History / Comment(s): Prostate cancer Medications and Allergies Home Medications Medication Instructions Recorded Confirmed Type ALPRAZolam [Xanax] 0.5 mg PO TID PRN 04/25/17 08/16/24 History Escitalopram [Lexapro] 20 mg PO HS 04/25/17 08/16/24 History HYDROcodone/APAP 7.5-325MG [Isleta 1 tab PO Q6H PRN 04/25/17 08/16/24 History 7.5-325] Levothyroxine Sodium [Synthroid] 88 mcg PO QAM 04/25/17 08/16/24 History Propranolol HCl [Inderal Xl] 80 mg PO QAM 04/25/17 08/16/24 History Triamterene-Hctz 37.5-25Mg 1 tab PO QAM 04/25/17 08/16/24 History [Dyazide 37.5-25 Capsule] Fenofibrate Nanocrystallized 145 mg PO HS 01/12/19 08/16/24 History [Fenofibrate] levETIRAcetam 500 mg PO BID 01/12/19 08/16/24 History Ergocalciferol [Vitamin D2 (1250 5,000 units PO WEEKLY 03/14/24 08/16/24 History Mcg = 16639 Iu)] Ezetimibe [Zetia] 10 mg PO QAM 03/14/24 08/16/24 History Ferosul 325 mg PO BID 03/14/24 08/16/24 History Losartan Potassium 50 mg PO QAM 03/14/24 08/16/24 History Pregabalin [Lyrica] 150 mg PO TID PRN 03/14/24 08/16/24 History Allergies Allergy/AdvReac Type Severity Reaction Status Date / Time No Known Allergies Allergy Verified 08/21/24 06:24 Physical Exam Vitals: Vital Signs Temp Pulse Resp BP BP Pulse Ox 08/21/24 14:37 47 L 155/97 98 08/21/24 14:22 97.8 F 55 L 17 161/103 97 08/21/24 13:45 53 L 16 161/92 97 08/21/24 13:30 53 L 16 149/72 99 08/21/24 13:15 58 L 16 178/82 98 08/21/24 13:00 53 L 16 176/83 98 08/21/24 12:45 56 L 16 160/80 98 08/21/24 12:30 53 L 16 148/79 100 08/21/24 12:13 58 L 16 147/86 164/87 100 08/21/24 11:58 63 16 151/86 158/92 100 08/21/24 11:43 60 16 163/85 160/91 100 08/21/24 11:28 66 16 136/86 141/76 98 12/10/24 11:13 71 16 135/62 130/60 96 08/21/24 10:57 64 16 140/83 145/62 96 08/21/24 10:42 62 16 134/64 131/62 96 08/21/24 07:13 56 L 16 133/79 99 08/21/24 06:50 97.6 F 69 16 156/82 99 Intake and Output 08/21/24 08/21/24 08/21/24 06:59 14:59 22:59 Intake Total 2250 Output Total 250 Balance 1999 Intake: IV 2250 Output: Urine 200 Estimated Blood Loss 50 Other: Weight 90.6 kg Head normocephalic Neck supple Lungs clear to auscultation bilaterally no wheezing or crackles Heart regular rate and rhythm S1-S2, no rub or gallop Abdomen is soft nontender nondistended positive bowel sounds no hepatosplenomegaly Extremities no edema Neuro alert and orientated to 3 Neck dressing is clean dry and intact LALA drain in place Results CBC & Chem 7: 08/22/24 03:10 08/22/24 03:10 Assessment and Plan Assessment: 1. Status post C4-C7 discectomy and fusion with Dr. Haynes send on 08/21/2024 2. History of fibromyalgia 3. History of hyperlipidemia 4. History of essential hypertension 5. History of seizures 6. History of congenital heart defect with open heart surgery at age 28 7. Chronic back pain DVT prophylaxis aspirin per orthopedic services Thank you for this consultation we will continue to follow patient closely throughout stay Lab work ordered for a.m. Time with Patient: Greater than 30 (Greater than 60% of the total time spent in counseling and coordination of care)
--- NOTE | 2024-08-22 10:37 | P.PN ---
Subjective Progress Note Date: 08/22/24 Naty Roblero, is a 54-year-old female patient who presented for an elective C4-C7 anterior fusion with Dr. Haynes send on 08/21/2024 patient has a past medical history of neck pain and headaches. Additional medical history includes chest pain, fibromyalgia, hyperlipidemia, hypertension, seizure disorder, sleep apnea, thyroid disorder heart defect requiring open heart surgery at age 28 and anxiety. At this time patient is resting comfortably in bed with c-collar current vital signs temp 97.8, heart 55, respiratory rate 17, blood pressure 144/84 with pulse ox of 98% on 3 L. Patient denies chest pain or shortness of breath. Patient denies nausea vomiting or diarrhea. Patient denies any burning or frequency On 08/22/2024 patient is alert and oriented x 3 patient is currently postop day 1. Patient denies any chest pain or shortness of breath. Patient denies nausea vomiting or diarrhea. Patient denies any urinary burning or frequency. Current vital signs temp 98.1, heart rate 60, respiratory rate 16, blood pressure 146/78 with a pulse ox of 95% on room air. Per orthopedic services patient will stay an additional 24 hours with DC plan to home with home health care Objective - Vital Signs Vital signs: Vital Signs Temp 98.1 F 08/22/24 06:55 Pulse 60 08/22/24 06:55 Resp 16 08/22/24 06:55 BP 146/78 08/22/24 06:55 Pulse Ox 95 08/22/24 06:55 FiO2 Intake & Output 08/21/24 08/22/24 08/22/24 18:59 06:59 18:59 Intake Total 2250 Output Total 550 10 Balance 1700 -10 Weight 90.6 kg Intake: IV 2250 Output: Drainage 10 Neck 10 Urine 500 Estimated Blood Loss 50 Other: Voiding Method Toilet # Voids 1 1 - Exam Head normocephalic Neck supple Lungs clear to auscultation bilaterally no wheezing or crackles Heart regular rate and rhythm S1-S2, no rub or gallop Abdomen is soft nontender nondistended positive bowel sounds no hepatosplenomegaly Extremities no edema Neuro alert and orientated to 3 Neck dressing is clean dry and intact LALA drain in place - Labs CBC & Chem 7: 08/22/24 03:10 08/22/24 03:10 Labs: Abnormal Lab Results - Last 24 Hours (Table) 08/22/24 08/22/24 Range/Units 03:10 03:10 RBC 3.46 L (4.10-5.20) X 10*6/uL Hgb 10.5 L (12.0-15.0) g/dL Hct 32.7 L (37.2-46.3) % RDW 14.7 H (11.5-14.5) % MPV 12.8 H (9.5-12.2) FL Est GFR (CKD-EPI) 41 L (>=60) Assessment and Plan Assessment: 1. Status post C4-C7 discectomy and fusion with Dr. Haynes send on 08/21/2024 2. History of fibromyalgia 3. History of hyperlipidemia 4. History of essential hypertension 5. History of seizures 6. History of congenital heart defect with open heart surgery at age 28 7. Chronic back pain DVT prophylaxis aspirin per orthopedic services Thank you for this consultation we will continue to follow patient closely throughout stay Lab work ordered for a.m.
[2024-08-22] MEDS: ASPIRIN 81 MG PO SCH (11:06)
[2024-08-22] MEDS: HYDROcodone/APAP 7.5-325MG 1 EACH TAB PO PRN (15:10)
--- NOTE | 2024-08-23 00:10 | CT ---
EXAMINATION TYPE: CT cervical spine wo con DATE OF EXAM: 08/22/2024 7:34 AM COMPARISON: 07-05 CLINICAL INDICATION: Female, 54 years old with history of s/p cervical fusion, POST OP CERVICAL FUSIO N, Lung cancer screening, History of tobacco use. TECHNIQUE: CT of the cervical spine is performed in the axial plane at 2 mm thick sections. Reconstr ucted images in the coronal, and sagittal plane are reviewed on the computer. Contrast used: mL of , (none if empty) Oral contrast used: (none if empty) CT DLP: 488 mGycm, Automated exposure control for dose reduction was used. FINDINGS: No acute fractures are evident. Vertebral body alignment is normal. Disc spacers placed C4-5 C5-6 and C6-7. Vertebral body heights are preserved. No spinal canal stenosis is evident. Postsurgical changes are in the prevertebral space with soft tissue swelling. Some central endplate spurring is present C5 mild anterior thecal sac compression. No spinal canal st enosis present. This is an improvement from the comparison. No neural foraminal stenosis is evident. IMPRESSION: 1. Postsurgical changes from disc spacers at C4-5 through C6-7. [facility], , 08/23/2024 12:08 AM
[2024-08-23 01:59] VITALS: RESP 16
[2024-08-23 08:41] LABS: Basophils # (A) 0.04 X 10*3/uL (0.00-0.10); Basophils % (A) 0.5 %; Eosinophils # (A) 0.17 X 10*3/uL (0.04-0.35); HCT 32.7 % (37.2-46.3); HGB 10.4 g/dL (12.0-15.0); Lymphocytes # (A) 1.87 X 10*3/uL (0.90-5.00); Lymphocytes % (A) 22.2 %; MCH 30.7 pg (27.0-32.0); MCHC 31.8 g/dL (32.0-37.0); MCV 96.5 FL (80.0-97.0); Mean Platelet Volume 13.2 FL (9.5-12.2); Monocytes # (A) 0.98 X 10*3/uL (0.20-1.00); Monocytes % (A) 11.6 %; NRBC Per 100 WBC 0 X 10*3/uL (0.00-0.01); Neutrophils # (A) 5.34 X 10*3/uL (1.80-7.70); Neutrophils % (A) 63.3 %; Platelet Count 169 X 10*3/uL (140-440); RBC 3.39 X 10*6/uL (4.10-5.20); RDW 14.5 % (11.5-14.5); WBC 8.43 X 10*3/uL (4.50-10.00)
[2024-08-23 08:58] LABS: ALT 23 U/L (8-44); AST 35 U/L (13-35); Albumin 3.6 g/dL (3.8-4.9); Alkaline Phosphatase 43 U/L (41-126); BUN/Creat Ratio 18.08 Ratio (12.00-20.00); Blood Urea Nitrogen 23.5 mg/dL (9.0-27.0); Calcium 8.8 mg/dL (8.7-10.3); Carbon Dioxide 23.7 mmol/L (21.6-31.8); Chloride 104 mmol/L (96-109); Glucose 86 mg/dL (70-110); Potassium 3.6 mmol/L (3.5-5.5); Sodium 140 mmol/L (135-145); Total Bilirubin 0.5 mg/dL (0.3-1.2); Total Protein 5.6 g/dL (6.2-8.2)
--- NOTE | 2024-08-23 13:14 | P.DS ---
Providers Date of admission: 08/21/24 05:50 Expected date of discharge: 08/23/24 Attending physician: Mamadou Montgomery DO Consults: 08/21/24 11:17 Consult Physician Routine Consulting Provider: Veronica Savage Reason/Comments: medical management Do you want consulting provider notified?: Yes Primary care physician: Veronica Savage [facility] Course: Date of admission: 08/21/2024 Date of discharge: 08/23/2024 Admission diagnosis: 1. C4-5 SPONDYLOLISTHESIS, GRADE I UNSTABLE 2. 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 UE RADICULOPATHY 4. UE WEAKNESS Discharge diagnosis: Same Attending physician: Dr. Montgomery Surgical procedures: C4-C7 ACDF Brief history: Patient is a 54-year-old female with a history of C4-C7 spondylosis with stenosis; C4-5 spinal listhesis; upper extremity weakness and radiculopathy. At this point patient has failed conservative treatment measures and has opted to proceed with a elective C4-C7 ACDF. Hospital course: Details of patient's surgery can be found in operative report. Patient tolerated the procedure well and was subsequently transported to orthopedic floor. Patient's orthopeidc and medical care was provided daily. Patient had daily laboratory tests performed for evaluation of overall blood counts. Patient had daily physical therapy to include strengthening range of motion as well as education with walker ambulation. Patient was treated with aspirin for their postoperative DVT prophylaxis during their inpatient stay. Patient was noted to have a relatively uneventful postoperative course. Patient reported satisfactory pain control with oral pain medications by postoperative day 2. Patient showed satisfactory progress with physical therapy. Patient moved steadily through the program and had no difficulty meeting the goals by postoperative day 2. Given patient's otherwise satisfactory course and having met physical therapy goals, plan is to discharge patient home on postoperative day 2. Discharge condition/disposition: Patient will be discharged home in stable condition. Discharge medications: Instructions are given on resumption of patient's normal daily medications per primary care recommendation, in addition patient will be prescribed Connelly; Lyrica; senna; Duricef. Spine Discharge and Recovery Instructions Date of Surgery: 08/21/2024 Diagnosis: C4-C7 spondylosis with stenosis; C4-5 spinal listhesis; upper extremity weakness and radiculopathy Procedure: C4-C7 ACDF Medications: See medication list All medication refills should be obtained through your primary care doctor or [facility]. Please discuss prescription refills at your follow up appointment. Do not call the hospital for medication refills. Dressing: Leave your dressing in place for a total of 5 days post operatively. Then you may remove your dressing and leave open to air. Keep the area clean and if not able to keep area clean, then cover with sterile gauze and tape. Showering: You may shower 3 days after your procedure allowing soap and water to run over incision. Do not scrub. Do not soak. Blot dry. Follow up: Please confirm a follow up appointment with your surgeon 3 weeks post operatively. Please make an appointment to follow up with your PCP in 1-2 weeks after surgery for evaluation '3 phase, 3-week plan' POST OP WEEKS 1-3 1. Lifting/carrying/pushing/pulling limited to less than 5 pounds. 2. Do not sit for longer than 15 minutes at one time. Get up and walk around. Prolonged sitting is NOT advised. If you lay down, see if you can tolerate laying down on you front (belly side) 3. Walk for periods of 15 minutes = 1 mile but no longer; do it multiple times times each day. 4. Ice your low back after activity. POST OP WEEKS 3-6 1. Lifting limited to less than 20 pounds. 2. Do not sit for longer than 30 minutes at a time. Frequently change positions. Use a sit-to stand workstation or take frequent breaks from sitting if you have returned to work. 3. Walk for 30 minutes each day. If possible, do these three or more times a day POST OP WEEKS 6+ At your 6-week appointment we will give you a physical therapy referral to focus on a core stabilization and strengthening program. You should also work on leg & buttock strengthening, hamstring & quadriceps stretching, and continue a low impact aerobic activity program such as swimming, walking, or riding a stationary bicycle. During the initial 6 weeks after your surgery, you are at the highest risk of re-injuring your spine. You should generally avoid BLT's (bending, lifting and twisting combination motions) and follow the above guidelines to reduce the chance of reinjury. You can anticipate post op appointments in our office at approximately 3 weeks and 6 weeks after your surgery. INCISION CARE: If your incision is not draining you do NOT need to cover it with a dressing. Keep your incision clean, dry and intact. In most cases, we apply skin glue, gaby or sutures to the incision at the time of surgery. This will be like a crust or have the appearance of a scab and will fall off in time on its own. The stitches or gaby need to be removed at 3 weeks post op appointment. You may begin to shower 3 days after surgery (this allows the glue to wagner well). However, please avoid scrubbing the incision site or peeling off any of the skin glue. This will ensure optimal healing of your incision. Also, during this time avoid soaking the incision area in water - this includes swimming pools, hot tubs or baths. No ointments, lotions or oils on the incision until your surgeon allows. Leave gaby, sutures or glue in place. Neurological dysfunction that comes on suddenly can also be a sign of a stroke. Below some common symptoms of a stroke are listed: B - balance difficulty such as sudden onset walking or leaning to one side - NEW E - eye problem such as sudden double vision or trouble seeing on one side - NEW F - Facial weakness or numbness on one side - NEW A - Arm or leg weakness or numbness on one side - NEW S - Slurred speech or difficulty with word finding - NEW T - Time is BRAIN! Call 911 as soon as you recognize these symptoms Diet: Consume a regular diet rich in vegetables and lean protein such as chicken or fish. You should consume in a ratio of approximately 20% fats|40% carbohydrates|40%protein. Vegetables, sweet potatoes, brown rice or quinoa are examples of good carbohydrates. Chips, white bread, cookies and sweets/sugar are examples of bad carbohydrates. Limit your bad carbs, go wild with good carbs. "Life's Simple 7" Guidelines as per [place] [employer] These will help you reclaim your life after surgery and flexographic press helper in your recovery, keeping in mind your restrictions. (1) Get Active. Physical activity can help people lose weight, control high blood pressure and cholesterol, feel emotionally better, and sleep better. (2) Control Cholesterol. Avoid a diet high in saturated fat, trans fat, & cholesterol. Limit whole milk & cream, ice cream, butter, egg yolks, processed meats (like sausage and hot dogs), and fatty meats. Choose healthy foods that are low in saturated fat, trans fat and cholesterol which include: Fruits and vegetables, fiber rich grain products (like whole grain pasta and brown rice), lean meat such as chicken, fish, nuts, seeds, and legumes. (3) Eat Better. Eat small portions. Shop at the grocery with a list and do not stray from it. Tips for a healthy diet include: Limit sodium intake to less than 1500mg daily, avoid prepackaged, processed, and fast foods, choose a diet rich in fruits, vegetables, and whole grain, high fiber foods, and limit saturated & cholesterol in your diet. (4) Manage Blood Pressure. If you have high blood pressure, you should have a cuff at home so that you can check your blood pressure regularly. Be sure you have a good cuff. An arm one is generally better than a wrist one. Bring the cuff to a doctor's appointment to validate that the measurements that your cuff are taking are accurate. Take your blood pressure twice daily when you are sitting down and relaxing. Record the numbers in a log and bring this log with you to your doctors' appointments. (5) Lose Weight if your BMI is above 25. A healthy BMI is between 19-25. To calculate Your BMI, you may use a Standard BMI Calculator on the NIH BMI website: <www.nhlbi.nih.gov/guidelines/obesity/BMI/bmicalc.htm>. Weigh oneself daily. If you are overweight, set a goal to lose weight. A pound a week loss if needed is a good target. (6) Reduce Blood Sugar. Limit foods and liquids with "added sugars." (Added sugars include sucrose, fructose, glucose, maltose, dextrose, high fructose corn syrup, corn syrup, concentrated fruit juice and honey). (7) Stop Smoking. If you smoke, quitting smoking is one of the best things that you can do for your health. Smoking increases your risk of heart attack, stroke, and peripheral vascular disease, which is a build-up of plaque in your arteries. Please discard all the cigarettes and lighters in your house. Have a plan for what you will do when you have the urge to smoke. Direct and second- hand smoke shortens your life as well as the lives of your family, friends and others around you. For your health and the health of those around you, please consider quitting! Proper Bending Body Mechanics: Maintain a wide stance with one foot slightly in front of the other. Keep your back straight. Bend utilizing the strength in your hips and knees. Do not bend at the waist. Maintain the lifted object at your waist-level close to your body. Avoid lifting weight that causes immediately pain or pain anywhere in the body afterwards. Smoking/Nicotine If there was ever one thing that you could do to increase your overall health, decrease your risk of cardiovascular problems by about 39% the second you make the choice, it is to STOP SMOKING. Your body's most instant gratification is the second you stop smoking. We have all heard the studies, read the articles but it is true, smoking is extremely bad for your overall health, and moreover it is detrimental to your bone health. Nicotine, IN ANY FORM, kills bone cells, prevents your body from healing fractures, and significantly prolongs healing after surgery. In spine surgery specifically, it increases your risk of not healing your bones to create a fusion and increases your risk of having a revision surgery due to this up to 60%. I know it is hard. I know it feels impossible. But there are ways. Take control of your life. We are here to help you through it. And when you are ready, ask us and we can direct you to help if you desire. Use the START Plan to Quit Smoking (please visit the Helpguide.org website listed below for more information): S = Set a quit date. Choose a date within the next 2 weeks, so you have enough time to prepare without losing your motivation to quit. If you mainly smoke at work, quit on the weekend, so you have a few days to adjust to the change. T = Tell family, friends, and co-workers that you plan to quit. Let your friends and family in on your plan to quit smoking and tell them you need their support and encouragement to stop. Look for a quit felipe who wants to stop smoking as well. You can help each other get through the rough times. A = Anticipate and plan for the challenges you'll face while quitting. Most people who begin smoking again do so within the first 3 months. You can help yourself make it through by preparing ahead for common challenges, such as nicotine withdrawal and cigarette cravings. R = Remove cigarettes and other tobacco products from your home, car, and work. Throw away all your cigarettes (no emergency pack!), lighters, ashtrays, and matches. Wash your clothes and freshen up anything that smells like smoke. Shampoo your car, clean your drapes and carpet, and steam your furniture. T = Talk to your doctor about getting help to quit. Your doctor can prescribe medication to help with withdrawal and suggest other alternatives. If you can't see a doctor, you can get many products over the counter at your local pharmacy or grocery store, including the nicotine patch, nicotine lozenges, and nicotine gum. Resources for Quitting Smoking: <https://www. [place].gov/documents/[facility]/Quit_Tobacco_Resources_for_patients_313480_7.pdf> Supplementation: Take recommended dosages of Vitamin D and Calcium to help fortify your bones and help them to heal. See your health maintenance packet for dosages and recommended levels. DVT/VTE prophylaxis: You will be given compression stockings from the hospital. Wear these daily for the first two weeks after surgery. You may take them off at night. You may be prescribed a medication to help thin your blood. Take this as directed. If you are not prescribed this medication, early and frequent ambulation has been shown to be the best prophylaxis to deep vein thrombosis and sequelae related to this event. Assessment: 1. C4-5 SPONDYLOLISTHESIS, GRADE I UNSTABLE 2. 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 UE RADICULOPATHY 4. UE WEAKNESS Procedures: C4-C7 ACDF Patient Condition at Discharge: Good Plan - Discharge Summary Discharge Rx Participant: Yes New Discharge Prescriptions: New cefaDROXiL [Duricef] 500 mg PO Q12HR 5 Days #10 cap Pregabalin [Lyrica] 150 mg PO TID #21 cap HYDROcodone/APAP 7.5-325MG [Connelly 7.5-325] 1 tab PO Q6HR PRN #28 tab PRN Reason: Pain Sennosides/Docusate Sodium [Senna Plus 8.6-50 mg Softgel] 1 each PO DAILY #20 capsule No Action Escitalopram [Lexapro] 20 mg PO HS ALPRAZolam [Xanax] 0.5 mg PO TID PRN PRN Reason: Anxiety Levothyroxine Sodium [Synthroid] 88 mcg PO QAM Triamterene-Hctz 37.5-25Mg [Dyazide 37.5-25 Capsule] 1 tab PO QAM Propranolol HCl [Inderal Xl] 80 mg PO QAM HYDROcodone/APAP 7.5-325MG [Connelly 7.5-325] 1 tab PO Q6H PRN PRN Reason: Pain levETIRAcetam 500 mg PO BID Fenofibrate Nanocrystallized [Fenofibrate] 145 mg PO HS Ergocalciferol [Vitamin D2 (1250 Mcg = 81214 Iu)] 5,000 units PO WEEKLY Pregabalin [Lyrica] 150 mg PO TID PRN PRN Reason: Pain Losartan Potassium 50 mg PO QAM Ferosul 325 mg PO BID Ezetimibe [Zetia] 10 mg PO QAM Discharge Medication List ALPRAZolam [Xanax] 0.5 mg PO TID PRN 04/25/17 [History] Escitalopram [Lexapro] 20 mg PO HS 04/25/17 [History] HYDROcodone/APAP 7.5-325MG [Connelly 7.5-325] 1 tab PO Q6H PRN 04/25/17 [History] Levothyroxine Sodium [Synthroid] 88 mcg PO QAM 04/25/17 [History] Propranolol HCl [Inderal Xl] 80 mg PO QAM 04/25/17 [History] Triamterene-Hctz 37.5-25Mg [Dyazide 37.5-25 Capsule] 1 tab PO QAM 04/25/17 [History] Fenofibrate Nanocrystallized [Fenofibrate] 145 mg PO HS 01/12/19 [History] levETIRAcetam 500 mg PO BID 01/12/19 [History] Ergocalciferol [Vitamin D2 (1250 Mcg = 99857 Iu)] 5,000 units PO WEEKLY 03/14/24 [History] Ezetimibe [Zetia] 10 mg PO QAM 03/14/24 [History] Ferosul 325 mg PO BID 03/14/24 [History] Losartan Potassium 50 mg PO QAM 03/14/24 [History] Pregabalin [Lyrica] 150 mg PO TID PRN 03/14/24 [History] HYDROcodone/APAP 7.5-325MG [Connelly 7.5-325] 1 tab PO Q6HR PRN #28 tab 08/23/24 [Rx] Pregabalin [Lyrica] 150 mg PO TID #21 cap 08/23/24 [Rx] Sennosides/Docusate Sodium [Senna Plus 8.6-50 mg Softgel] 1 each PO DAILY #20 capsule 08/23/24 [Rx] cefaDROXiL [Duricef] 500 mg PO Q12HR 5 Days #10 cap 08/23/24 [Rx] Follow up Appointment(s)/Referral(s): Mamadou Montgomery DO [Doctor of Osteopathic Medicine] - 09/07/24 8:30 am Patient Instructions/Handouts: Anterior Cervical Discectomy (GEN) Activity/Diet/Wound Care/Special Instructions: Spine Discharge and Recovery Instructions Date of Surgery: 07/29/2020 Diagnosis: [] Procedure: [] Medications: See medication list All medication refills should be obtained through your primary care doctor or your clinic spine surgeon. Please discuss prescription refills at your follow up appointment. Do not call the hospital for medication refills. Dressing: Leave your dressing in place for a total of 5 days post operatively. Then you may remove your dressing and leave open to air. Keep the area clean and if not able to keep area clean, then cover with sterile gauze and tape. Showering: You may shower 3 days after your procedure allowing soap and water to run over incision. Do not scrub. Do not soak. Blot dry. Follow up: Please confirm a follow up appointment with your surgeon 3 weeks post operatively. Please make an appointment to follow up with your PCP in 1-2 weeks after surgery for evaluation '3 phase, 3-week plan' POST OP WEEKS 1-3 1. Lifting/carrying/pushing/pulling limited to less than 5 pounds. 2. Do not sit for longer than 15 minutes at one time. Get up and walk around. Prolonged sitting is NOT advised. If you lay down, see if you can tolerate laying down on you front (belly side) 3. Walk for periods of 15 minutes = 1 mile but no longer; do it multiple times times each day. 4. Ice your low back after activity. POST OP WEEKS 3-6 1. Lifting limited to less than 20 pounds. 2. Do not sit for longer than 30 minutes at a time. Frequently change positions. Use a sit-to stand workstation or take frequent breaks from sitting if you have returned to work. 3. Walk for 30 minutes each day. If possible, do these three or more times a day POST OP WEEKS 6+ At your 6-week appointment we will give you a physical therapy referral to focus on a core stabilization and strengthening program. You should also work on leg & buttock strengthening, hamstring & quadriceps stretching, and continue a low impact aerobic activity program such as swimming, walking, or riding a stationary bicycle. During the initial 6 weeks after your surgery, you are at the highest risk of re-injuring your spine. You should generally avoid BLT's (bending, lifting and twisting combination motions) and follow the above guidelines to reduce the chance of reinjury. You can anticipate post op appointments in our office at approximately 3 weeks and 6 weeks after your surgery. INCISION CARE: If your incision is not draining you do NOT need to cover it with a dressing. Keep your incision clean, dry and intact. In most cases, we apply skin glue, gaby or sutures to the incision at the time of surgery. This will be like a crust or have the appearance of a scab and will fall off in time on its own. The stitches or gaby need to be removed at 3 weeks post op appointment. You may begin to shower 3 days after surgery (this allows the glue to wagner well). However, please avoid scrubbing the incision site or peeling off any of the skin glue. This will ensure optimal healing of your incision. Also, during this time avoid soaking the incision area in water - this includes swimming pools, hot tubs or baths. No ointments, lotions or oils on the incision until your surgeon allows. Leave gaby, sut ures or glue in place. Neurological dysfunction that comes on suddenly can also be a sign of a stroke. Below some common symptoms of a stroke are listed: B - balance difficulty such as sudden onset walking or leaning to one side - NEW E - eye problem such as sudden double vision or trouble seeing on one side - NEW F - Facial weakness or numbness on one side - NEW A - Arm or leg weakness or numbness on one side - NEW S - Slurred speech or difficulty with word finding - NEW T - Time is BRAIN! Call 911 as soon as you recognize these symptoms Diet: Consume a regular diet rich in vegetables and lean protein such as chicken or fish. You should consume in a ratio of approximately 20% fats|40% carbohydrates|40%protein. Vegetables, sweet potatoes, brown rice or quinoa are examples of good carbohydrates. Chips, white bread, cookies and sweets/sugar are examples of bad carbohydrates. Limit your bad carbs, go wild with good carbs. "Life's Simple 7" Guidelines as per [place] [employer] These will help you reclaim your life after surgery and flexographic press helper in your recovery, keeping in mind your restrictions. (1) Get Active. Physical activity can help people lose weight, control high blood pressure and cholesterol, feel emotionally better, and sleep better. (2) Control Cholesterol. Avoid a diet high in saturated fat, trans fat, & cholesterol. Limit whole milk & cream, ice cream, butter, egg yolks, processed meats (like sausage and hot dogs), and fatty meats. Choose healthy foods that are low in saturated fat, trans fat and cholesterol which include: Fruits and vegetables, fiber rich grain products (like whole grain pasta and brown rice), lean meat such as chicken, fish, nuts, seeds, and legumes. (3) Eat Better. Eat small portions. Shop at the grocery with a list and do not stray from it. Tips for a healthy diet include: Limit sodium intake to less than 1500mg daily, avoid prepackaged, processed, and fast foods, choose a diet rich in fruits, vegetables, and whole grain, high fiber foods, and limit saturated & cholesterol in your diet. (4) Manage Blood Pressure. If you have high blood pressure, you should have a cuff at home so that you can check your blood pressure regularly. Be sure you have a good cuff. An arm one is generally better than a wrist one. Bring the cuff to a doctor's appointment to validate that the measurements that your cuff are taking are accurate. Take your blood pressure twice daily when you are sitting down and relaxing. Record the numbers in a log and bring this log with you to your doctors' appointments. (5) Lose Weight if your BMI is above 25. A healthy BMI is between 19-25. To calculate Your BMI, you may use a Standard BMI Calculator on the NIH BMI website: <www.nhlbi.nih.gov/guidelines/obesity/BMI/bmicalc.htm>. Weigh oneself daily. If you are overweight, set a goal to lose weight. A pound a week loss if needed is a good target. (6) Reduce Blood Sugar. Limit foods and liquids with "added sugars." (Added sugars include sucrose, fructose, glucose, maltose, dextrose, high fructose corn syrup, corn syrup, concentrated fruit juice and honey). (7) Stop Smoking. If you smoke, quitting smoking is one of the best things that you can do for your health. Smoking increases your risk of heart attack, stroke, and peripheral vascular disease, which is a build-up of plaque in your arteries. Please discard all the cigarettes and lighters in your house. Have a plan for what you will do when you have the urge to smoke. Direct and second- hand smoke shortens your life as well as the lives of your family, friends and others around you. For your health and the health of those around you, please consider quitting! Proper Bending Body Mechanics: Maintain a wide stance with one foot slightly in front of the other. Keep your back straight. Bend utilizing the strength in your hips and knees. Do not bend at the waist. Maintain the lifted object at your waist-level close to your body. Avoid lifting weight that causes immediately pain or pain anywhere in the body afterwards. Smoking/Nicotine If there was ever one thing that you could do to increase your overall health, decrease your risk of cardiovascular problems by about 39% the second you make the choice, it is to STOP SMOKING. Your body's most instant gratification is the second you stop smoking. We have all heard the studies, read the articles but it is true, smoking is extremely bad for your overall health, and moreover it is detrimental to your bone health. Nicotine, IN ANY FORM, kills bone cells, prevents your body from healing fractures, and significantly prolongs healing after surgery. In spine surgery specifically, it increases your risk of not healing your bones to create a fusion and increases your risk of having a revision surgery due to this up to 60%. I know it is hard. I know it feels impossible. But there are ways. Take control of your life. We are here to help you through it. And when you are ready, ask us and we can direct you to help if you desire. Use the START Plan to Quit Smoking (please visit the Helpguide.org website listed below for more information): S = Set a quit date. Choose a date within the next 2 weeks, so you have enough time to prepare without losing your motivation to quit. If you mainly smoke at work, quit on the weekend, so you have a few days to adjust to the change. T = Tell family, friends, and co-workers that you plan to quit. Let your friends and family in on your plan to quit smoking and tell them you need their support and encouragement to stop. Look for a quit felipe who wants to stop smoking as well. You can help each other get through the rough times. A = Anticipate and plan for the challenges you'll face while quitting. Most people who begin smoking again do so within the first 3 months. You can help yourself make it through by preparing ahead for common challenges, such as nicotine withdrawal and cigarette cravings. R = Remove cigarettes and other tobacco products from your home, car, and work. Throw away all your cigarettes (no emergency pack!), lighters, ashtrays, and matches. Wash your clothes and freshen up anything that smells like smoke. Shampoo your car, clean your drapes and carpet, and steam your furniture. T = Talk to your doctor about getting help to quit. Your doctor can prescribe medication to help with withdrawal and suggest other alternatives. If you can't see a doctor, you can get many products over the counter at your local pharmacy or grocery store, including the nicotine patch, nicotine lozenges, and nicotine gum. Resources for Quitting Smoking: <https://www.[place].gov/documents/[facility]/Quit_Tobacco_Resources_for_patients_313 480_7.pdf> Supplementation: Take recommended dosages of Vitamin D and Calcium to help fortify your bones and help them to heal. See your health maintenance packet for dosages and recommended levels. DVT/VTE prophylaxis: You will be given compression stockings from the hospital. Wear these daily for the first two weeks after surgery. You may take them off at night. You may be prescribed a medication to help thin your blood. Take this as directed. If you are not prescribed this medication, early and frequent ambulation has been shown to be the best prophylaxis to deep vein thrombosis and sequelae related to this event. Discharge Disposition: HOME SELF-CARE
--- NOTE | 2024-08-23 13:17 | P.PN ---
Subjective Progress Note Date: 08/23/24 Naty Roblero, is a 54-year-old female patient who presented for an elective C4-C7 anterior fusion with Dr. Goodman hagen on 08/21/2024 patient has a past medical history of neck pain and headaches. Additional medical history includes chest pain, fibromyalgia, hyperlipidemia, hypertension, seizure disorder, sleep apnea, thyroid disorder heart defect requiring open heart surgery at age 28 and anxiety. At this time patient is resting comfortably in bed with c-collar current vital signs temp 97.8, heart 55, respiratory rate 17, blood pressure 144/84 with pulse ox of 98% on 3 L. Patient denies chest pain or shortness of breath. Patient denies nausea vomiting or diarrhea. Patient denies any burning or frequency On 08/22/2024 patient is alert and oriented x 3 patient is currently postop day 1. Patient denies any chest pain or shortness of breath. Patient denies nausea vomiting or diarrhea. Patient denies any urinary burning or frequency. Current vital signs temp 98.1, heart rate 60, respiratory rate 16, blood pressure 146/78 with a pulse ox of 95% on room air. Per orthopedic services patient will stay an additional 24 hours with DC plan to home with home health care On 08/23/2024 patient was seen and examined on the medical floor she is alert and oriented x 3 in no apparent distress there is no fever or chills no headache or dizziness no chest pain no shortness of breath no cough no nausea or vomiting no abdominal pain no diarrhea and no urinary symptoms. Blood pressure was elevated last night, IV hydralazine was ordered, patient to continue with oral losartan, she will be reevaluated in the next week as outpatient to assess blood pressure medications. Plan is for discharge to home today per orthopedic surgery, patient is medically cleared for discharge, will follow in the office within 1 week. Objective - Vital Signs Vital signs: Vital Signs Temp 98.0 F 08/23/24 07:10 Pulse 70 08/23/24 07:10 Resp 16 08/23/24 07:10 BP 148/89 08/23/24 07:10 Pulse Ox 93 L 08/23/24 07:10 FiO2 Intake & Output 08/22/24 08/23/24 08/23/24 18:59 06:59 18:59 Intake Total 120 Output Total 10 35 Balance 110 -35 Intake: Oral 120 Output: Drainage 10 35 Neck 10 35 Other: Voiding Method Toilet # Voids 3 4 - Exam Head normocephalic Neck supple Lungs clear to auscultation bilaterally no wheezing or crackles Heart regular rate and rhythm S1-S2, no rub or gallop Abdomen is soft nontender nondistended positive bowel sounds no hepatosplenomegaly Extremities no edema Neuro alert and orientated to 3 Neck dressing is clean dry and intact LALA drain in place - Labs CBC & Chem 7: 08/23/24 03:38 08/23/24 03:38 Labs: Abnormal Lab Results - Last 24 Hours (Table) 08/23/24 08/23/24 Range/Units 03:38 03:38 RBC 3.39 L (4.10-5.20) X 10*6/uL Hgb 10.4 L (12.0-15.0) g/dL Hct 32.7 L (37.2-46.3) % MCHC 31.8 L (32.0-37.0) g/dL MPV 13.2 H (9.5-12.2) FL Anion Gap 12.30 H (4.00-12.00) mmol/L Est GFR (CKD-EPI) 48 L (>=60) Total Protein 5.6 L (6.2-8.2) g/dL Albumin 3.6 L (3.8-4.9) g/dL Assessment and Plan Assessment: 1. Status post C4-C7 discectomy and fusion with Dr. Haynes send on 08/21/2024 2. History of fibromyalgia 3. History of hyperlipidemia 4. History of essential hypertension 5. History of seizures 6. History of congenital heart defect with open heart surgery at age 28 7. Chronic back pain DVT prophylaxis aspirin per orthopedic services Thank you for this consultation we will continue to follow patient closely throughout stay Lab work ordered for a.m.
--- NOTE | 2024-08-23 13:22 | P.PN ---
Subjective Progress Note Date: 08/23/24 Principal diagnosis: C4-C7 spondylosis with stenosis; C4-5 spinal listhesis; upper extremity weakness and radiculopathy Patient was seen at bedside this morning lying in the semirecumbent position with hard cervical collar in place and dressing present over anterior cervical spine and LALA drain in place. Minimal output in LALA drain. Patient states she has been up walking since surgery without issue. present during encounter. Patient says she does have improved pain control in the neck. Patient is hoping go home later today. Patient denies any other issues at this time. Objective - Vital Signs Vital signs: Vital Signs Temp 98.0 F 08/23/24 07:10 Pulse 70 08/23/24 07:10 Resp 16 08/23/24 07:10 BP 148/89 08/23/24 07:10 Pulse Ox 93 L 08/23/24 07:10 FiO2 Intake & Output 08/22/24 08/23/24 08/23/24 18:59 06:59 18:59 Intake Total 120 Output Total 10 35 Balance 110 -35 Intake: Oral 120 Output: Drainage 10 35 Neck 10 35 Other: Voiding Method Toilet # Voids 3 4 - Exam Hard c-collar and dressing and drain in place over anterior cervical spine. Dressing removed drain removed at bedside and new dressing placed over incision. Sensation is equal, symmetric, bowel intact throughout the upper extremities on exam. There is some generalized tenderness to palpation over the anterior cervical spine near incision. Patient does have limited range of motion of the bilateral shoulder secondary to stiffness and referred pain to the neck due to the recent surgery. Full range of motion throughout bilateral wrist and elbows in flexion/tension. Radial pulse intact, 2+ bilaterally. Cap refill under 3 seconds in digits of upper extremities. - Labs CBC & Chem 7: 08/23/24 03:38 08/23/24 03:38 Labs: Abnormal Lab Results - Last 24 Hours (Table) 08/23/24 08/23/24 Range/Units 03:38 03:38 RBC 3.39 L (4.10-5.20) X 10*6/uL Hgb 10.4 L (12.0-15.0) g/dL Hct 32.7 L (37.2-46.3) % MCHC 31.8 L (32.0-37.0) g/dL MPV 13.2 H (9.5-12.2) FL Anion Gap 12.30 H (4.00-12.00) mmol/L Est GFR (CKD-EPI) 48 L (>=60) Total Protein 5.6 L (6.2-8.2) g/dL Albumin 3.6 L (3.8-4.9) g/dL Assessment and Plan Assessment: 1. C4-C7 spondylosis with stenosis; C4-5 spinal listhesis; upper extremity weakness and radiculopathy -Postop day #2 status post C4-C7 ACDF Plan: 1. C4-C7 spondylosis with stenosis; C4-5 spinal listhesis; upper extremity weakness and radiculopathy -C4-C7 ACDF surgery performed 08/21/2024. Patient stable bedside this morning with hard c-collar in place. Dressing and drain removed at bedside. New dressing placed over incision. Pain well- controlled with oral medication. Discharge home today with home care. 2. Appreciate medical management 3. Pain management -[place] 4. DVT prophylaxis -aspirin in the hospital 5. GI prophylaxis -[place] 6. PT/OT -hard c-collar on at all times. Weightbearing as tolerated 7. Encourage incentive spirometer use 8. Discharge planning -discharge home today Time with Patient: Less than 30
[2024-08-23 14:07] VITALS: BP 142/91; PULSE 68; TEMP 98.1
[2024-08-28] MEDS ORDERED: ERGOCALCIFEROL 1,250 MCG (50,000 IU) CAPSULE PO SCH (09:00)
== END 2024-08-23 15:38 | disposition home or self-care (01) ==
LOC: OR 05:49 → 4SSUR 05:50
PROVIDERS: ADMIT Orthopaedic Surgery; ATTEND Orthopaedic Surgery
DX: M50.122 Cervical disc disorder at C5-C6 level with radiculopathy (principal); M47.22 Other spondylosis with radiculopathy, cervical region; M43.12 Spondylolisthesis, cervical region; M48.02 Spinal stenosis, cervical region; M25.78 Osteophyte, vertebrae; I10 Essential (primary) hypertension; E78.5 Hyperlipidemia, unspecified; G47.30 Sleep apnea, unspecified; F41.9 Anxiety disorder, unspecified; M79.7 Fibromyalgia; E07.9 Disorder of thyroid, unspecified; Z79.890 Hormone replacement therapy; Z79.899 Other long term (current) drug therapy
CPT/HCPCS: 22551; 22552 ×2; 22845; 20931; 20936; 96376 ×3; 96375; 96365; 96366; 97161; 80053; 80048; 85025 ×2; 72020; 72125; G0378 ×3; G0379; C1713; J2250; J0330; J0360; J2710; J0690; J2405; J2003; J3010; J1885 ×3; J2704; J1171 ×2; J1596